=== PATIENT | male | born 1930 | race Caucasian/White ===

== ENCOUNTER 2017-12-26 10:06 | Inpatient (IN) | payer MEDICARE ==
[~2017-12-26] VITALS: Ht 180.3 cm; Wt 97.7 kg
[~2017-12-26 10:06] MED LIST: ALPR0.5T7 PO; AMLO5TAB7 PO; BUME1TAB4 PO; CLOP75TA28 PO; INSU100I23 SC; LEVO25TA5 PO; MECL-124 PO; METO-352 PO; METO-370; NITR0.4T39 SL; PANT40TA3 PO; POTA20PA34 PO; POTA20TA15 PO
[2017-12-26 11:38] VITALS: BP 131/75
[2017-12-26] MEDS ORDERED: ONDANSETRON 4 MG/2 ML (SDV) Z0FRAN IV PRN (11:45)
[2017-12-26] MEDS ORDERED: INSU100I23 SQ (11:56)
[2017-12-26] MEDS ORDERED: METO-370 PO (11:56)
[2017-12-26] MEDS: NS IV 1000 ML 1,000 ML IV SCH (12:01)
[2017-12-26] MEDS: morphine INJ 4 MG/ML 1 ML (VIAL/SYRINGE) IV PRN ×2 (12:01→14:48)
[2017-12-26] MEDS ORDERED: ALPRAZolam 0.5 MG (XANAX) TAB PO PRN (12:30)
[2017-12-26] MEDS ORDERED: NITROGLYCERIN 0.4 MG SL TABS BTL 25'S SL PRN (12:30)
[2017-12-26 12:56] LABS: HEMOGLOBIN 13.2 G/DL (13.3-17.7); RED BLOOD COUNT 3.97 10^6/uL (4.35-5.85); RED CELL DISTRIBUTION WIDTH 12.7 % (10.0-14.5); WHITE BLOOD COUNT 7.6 10^3/uL (4.3-11.0)
[2017-12-26 13:16] LABS: CALCIUM 8.9 MG/DL (8.5-10.1); CREATININE SERUM 2.39 MG/DL (0.60-1.30); POTASSIUM 4.2 MMOL/L (3.6-5.0)
[2017-12-26] MEDS ORDERED: MECLIZINE 25 MG (ANTIVERT) TAB PO PRN (14:45)
[2017-12-26] MEDS ORDERED: ceFAZolin 2 GM IV Premixed 50 ML IV NR (15:15)
[2017-12-26 16:35] VITALS: BP 128/60
[2017-12-26] MEDS: ENOXAPARIN 30 MG/0.3 ML (LOVENOX) SYR SC SCH (16:46)
[2017-12-26] MEDS: inSUlin ASPART (NovoLOG) 1 UNIT/0.01 ML (CHARGE PER UNIT) SC SCH (16:47)
[2017-12-26 17:58] LABS: BILIRUBIN,URINE NEGATIVE (NEGATIVE); CLARITY,URINE SLIGHTLY CLOUDY; COLOR,URINE AMBER; GLUCOSE, URINE (UA) NEGATIVE (NEGATIVE); KETONES,URINE NEGATIVE (NEGATIVE); LEUKOCYTE ESTERASE ,URINE 2+ (NEGATIVE); NITRITE,URINE NEGATIVE (NEGATIVE); PH,URINE 6.5 (5-9); PROTEIN,URINE 2+ (NEGATIVE); UROBILINOGEN,URINE 1 MG/DL (NORMAL)
[2017-12-26 18:06] LABS: BACTERIA,URINE NEGATIVE /HPF; RBC,URINE >100 /HPF; WBC,URINE RARE /HPF
--- NOTE | 2017-12-26 19:36 | History & Physicial ---
History of Present Illness History of Present Illness Reason for visit/HPI PT IS AN 87 Y/O MALE WHO IS KNOWN TO ME FROM CLINIC AND PREVIOUS HOSPITALIZATIONS. THE PATIENT REPORTS THAT HE WOKE UP THIS MORNING AROUND 7, GOT UP TO GO TO THE RESTROOM AND FELT UNSTEADY - HE GRABBED FOR THE VANITY, BUT WENT DOWN TO THE GROUND HITTING HIS RIGHT SHOULDER ON THE TOILET AND HIS RIGHT HIP ON THE FLOOR. HE WAS ABLE TO ROUSE HIS FROM BED AND HE WAS TAKEN TO [facility] WHERE HE WAS FOUND TO HAVE A RIGHT HIP FRACTURE. THEY DID NOT HAVE ORTHOPEDIC COVERAGE AVAILABLE TODAY. HE REPORTS THAT HIS SHOULDER DOES NOT HURT, BUT HIS RIGHT HIP CONTINUES TO BE UNCOMFORTABLE. Date of Admission Dec 26, 2017 at 11:10 Date Seen by Provider: Dec 26, 2017 Time Seen by Provider: 19:00 I consulted on this patient on 12/26/17 1900 Attending Physician Franco Gilmore MD Admitting Physician Franco Gilmore MD Consult DR. ZHANG Allergies and Home Medications Allergies Coded Allergies: fenofibrate (Verified Allergy, Unknown, 10/18/17) metoclopramide (Verified Allergy, Unknown, 10/18/17) rosiglitazone (Verified Allergy, Unknown, 10/18/17) Home Medications Alprazolam 0.5 Mg Tablet, 0.5 MG PO BID PRN for ANXIETY, (Reported) Amlodipine Besylate 5 Mg Tablet, 5 MG PO DAILY, (Reported) Bumetanide 1 Mg Tablet, 1 MG PO DAILY, (Reported) Clopidogrel Bisulfate 75 Mg Tablet, 75 MG PO DAILY, (Reported) Insulin Lispro 100 Unit/1 Ml Insuln.pen, 30 UNIT SQ BID, (Reported) Levothyroxine Sodium 25 Mcg Tablet, 25 MCG PO DAILY, (Reported) Meclizine HCl 25 Mg Tab.chew, 25 MG PO TID PRN for DIZZINESS, (Reported) Metoprolol Succinate 50 Mg Tab.er.24h, 50 MG PO HS, (Reported) Nitroglycerin 0.4 Mg Tab.subl, 0.4 MG SL UD PRN for CHEST PAIN, (Reported) Pantoprazole Sodium 40 Mg Tablet.dr, 40 MG PO DAILY, (Reported) Potassium Chloride 20 Meq Tab.er.prt, 20 MEQ PO HS, (Reported) Patient Home Medication List Home Medication List Reviewed: Yes Past Halmcuh-Nulnhj-Wuptpo Hx Patient Social History Deztal Status: Living Status: LIVES AT HOME WITH HIS AND DTR AND HER Employed/Student: retired Alcohol Use: Denies Use Recreational Drug Use: No Smoking Status: Never a Smoker Physical Abuse Screen: No Sexual Abuse: No Recent Foreign Travel: No Contact w/other who traveled: No Recent Hopitalizations: No Recent Infectious Disease Expo: No Immunizations Up To Date Tetanus Booster (TDap): Unknown Pediatric: Yes Date of Pneumonia Vaccine: Feb 26, 2017 Seasonal Allergies Seasonal Allergies: No Surgeries Yes (stents, aortic valve replacement) CABG Respiratory Yes Currently Using CPAP: No Currently Using BIPAP: No Cardiovascular Yes Hypertension Neurological Yes Stroke Reproductive System Sexually Transmitted Disease: No HIV/AIDS: No Genitourinary No Gastrointestinal Yes Gastroesophageal Reflux Musculoskeletal Yes Arthritis Endocrine History of Endocrine Disorders: Yes Endocrine Disorders: Diabetes, Insulin dep, Hypothyroidsim HEENT History of HEENT Disorders: No Loss of Vision: Denies Hearing Impairment: Denies Cancer No Psychosocial History of Psychiatric Problem: Yes Behavioral Health Disorders: Depression Integumentary History of Skin or Integumenta: No Blood Transfusions History of Blood Disorders: No Adverse Reaction to a Blood Tr: No Reviewed Nursing Assessment Reviewed/Agree w Nursing PMH: Yes Family Medical History Significant Family History: Heart Disease, Hypertension Family Hx: Cardiovascular disease Hypertension Myocardial infarction Review of Systems Constitutional: No chills, No fever, No malaise, No weakness EENTM: No blurred vision, No throat swelling Respiratory: No cough, No dyspnea on exertion Cardiovascular: No chest pain, No edema, No palpitations Gastrointestinal: No abdominal pain, No constipation, No diarrhea Genitourinary: no symptoms reported Musculoskeletal: joint pain (RIGHT HIP PAIN), muscle weakness Skin: no symptoms reported Psychiatric/Neurological: Denies Anxiety, Denies Depressed; Weakness All Other Systems Reviewed Negative Unless Noted: Yes Physical Exam Vital Signs Vital Signs - First Documented 12/26/17 11:38 Temp 96.2 Pulse 62 Resp 20 B/P (MAP) 131/75 (93) Pulse Ox 97 O2 Delivery Nasal Cannula O2 Flow Rate 4.00 Capillary Refill : Height, Weight, BMI Height: 5'11.00" Weight: 218lbs. 9.6oz. 99.604676ds; 30.5 BMI Method:Stated General Appearance: No Apparent Distress, WD/WN Eyes: Bilateral Eye Normal Inspection, Bilateral Eye PERRL, Bilateral Eye EOMI HEENT: PERRL/EOMI, Pharynx Normal Neck: Full Range of Motion, Non Tender, Supple Respiratory: Chest Non Tender, Lungs Clear, Normal Breath Sounds, No Accessory Muscle Use, No Respiratory Distress Cardiovascular: Regular Rate, Rhythm, No Edema, No Murmur Gastrointestinal: Normal Bowel Sounds, Non Tender, Soft Rectal: Deferred Extremity: Normal Capillary Refill, No Pedal Edema, Other (TTP OVER RIGHT ANTERIOR HIP) Neurologic/Psychiatric: Alert, Oriented x3, No Motor/Sensory Deficits, Normal Mood/Affect, lead electrical controls engineer II-XII Norm as Tested Skin: Normal Color, Warm/Dry Lymphatic: No Adenopathy Assessment/Plan Assessment and Plan RIGHT INTERTROCHANTERIC HIP FRACTURE HYPERTENSION DIABETES MELLITUS HYPOTHYROID GERD RIGHT INTERTROCHANTERIC HIP FRACTURE - DR. ZHANG TO PERFORM SURGERY TOMORROW MORNING. HYPERTENSION - RESUME HOME MEDICATIONS - MONITOR BLOOD PRESSURES. DIABETES MELLITUS - RESUME INSULIN. HYPOTHYROID - RESUME LEVOTHYROXINE. GERD - RESUME PROTONIX. HOLD ANTICOAGULATION UNTIL ONE DAY POST OP - RX FOR FOOT PUMPS. Admission Diagnosis RIGHT INTERTROCHANTERIC HIP FRACTURE HYPERTENSION DIABETES MELLITUS HYPOTHYROID Admission Status: Inpatient Order (span 2 midnights) Reason for Inpatient Admission: PT HAS RIGHT HIP FRACTURE - WILL REQUIRE MORE THAN TWO MIDNIGHTS FOR STABILIZATION AND MANAGEMENT OF HIS SYMPTOMS. Clinical Quality Measures DVT/VTE Risk/Contraindication: Risk Factor Score Per Nursin RFS Level Per Nursing on Admit: 4+=Very High FRANCO GILMORE MD Dec 26, 2017 19:36
[2017-12-26 20:30] VITALS: BP 110/56
[2017-12-26] MEDS: meTOproloL SUCCINATE 50 MG (TOPROL XL) TAB PO SCH (21:32)
[2017-12-26] MEDS: KCL 20 MEQ TAB (K-DUR) PO SCH (21:33)
[2017-12-27 00:15] VITALS: BP 117/58
[2017-12-27] MEDS: NS IV 1000 ML 1,000 ML IV SCH ×2 (01:29→15:00)
[2017-12-27 04:44] VITALS: BP 127/60
[2017-12-27 05:55] LABS: HEMOGLOBIN 11.4 G/DL (13.3-17.7); MEAN PLATELET VOLUME 9.5 FL (7.4-10.4); RED BLOOD COUNT 3.52 10^6/uL (4.35-5.85); RED CELL DISTRIBUTION WIDTH 12.9 % (10.0-14.5); WHITE BLOOD COUNT 5.3 10^3/uL (4.3-11.0)
[2017-12-27] MEDS: LEVOTHYROXINE 25 MCG (LEVOTHROID) TAB PO SCH (06:08)
[2017-12-27] MEDS: PANTOPRAZOLE 40 MG (PROTONIX) TAB PO SCH (06:08)
[2017-12-27 06:16] LABS: ALBUMIN 3.1 GM/DL (3.2-4.5); BILIRUBIN,TOTAL 1.5 MG/DL (0.1-1.0); CALCIUM 8.2 MG/DL (8.5-10.1); CREATININE SERUM 2.26 MG/DL (0.60-1.30); POTASSIUM 4.2 MMOL/L (3.6-5.0); TOTAL PROTEIN 5.9 GM/DL (6.4-8.2)
[2017-12-27] MEDS: inSUlin ASPART (NovoLOG) 1 UNIT/0.01 ML (CHARGE PER UNIT) SC SCH ×2 (07:16→17:53)
[2017-12-27 08:00] VITALS: BP 133/62
[2017-12-27] MEDS ORDERED: fentaNYL INJECTION 100 MCG/2 ML AMP ONE ×2 (09:00→10:26)
[2017-12-27] MEDS ORDERED: NEO/POLY/BAC (NEOSPORIN) OINT 15 GM TUBE ONE (09:15)
[2017-12-27] MEDS ORDERED: GENTAMICIN 40 MG/ML 2 ML INJ SDV ONE (09:15)
[2017-12-27] MEDS ORDERED: proPOfol 200 MG/20 ML (DIPRIVAN) VIAL IV ONE (09:24)
[2017-12-27] MEDS ORDERED: ROCURONIUM 10 MG/ML 5 ML SYRINGE IV ONE (09:24)
[2017-12-27] MEDS ORDERED: LIDOCAINE PF 2% 5 ML (XYLOCAINE) VIAL ONE (09:24)
[2017-12-27] MEDS ORDERED: ONDANSETRON 4 MG/2 ML (SDV) Z0FRAN ONE (09:24)
[2017-12-27] MEDS: LACTATED RINGERS 1,000 ML IV PRN ×2 (09:25→10:55)
[2017-12-27] MEDS ORDERED: SEVOFLURANE (ULTANE) 15 ML INHAL SOLN ONE ×7 (09:28→11:33)
--- NOTE | 2017-12-27 09:30 | Progress Note-Pre Operative ---
Pre-Operative Progress Note H&P Reviewed The H&P was reviewed, patient examined and no changes noted. Date Seen by Provider: Dec 27, 2017 Time Seen by Provider: 09:20 Date H&P Reviewed: Dec 27, 2017 Time H&P Reviewed: 09:20 Pre-Operative Diagnosis: Displaced right femoral neck fracture BJ ZHANG DO Dec 27, 2017 9:30 am
[2017-12-27] MEDS ORDERED: diphenhydrAMINE 50 MG/ML INJ (BENADRYL) IV PRN (09:45)
[2017-12-27] MEDS ORDERED: ceFAZolin 2 GM IV Premixed 50 ML IV SCH (09:45)
--- NOTE | 2017-12-27 10:27 | Progress Note ---
Subjective Date Seen by Provider: Dec 27, 2017 Time Seen by Provider: 09:00 Subjective/Events-last exam PT IS AN 87 Y/O MALE WHO FELL AT HOME AND SUSTAINED A RIGHT INTERTROCHANTERIC HIP FRACTURE. CULLEN REPORTS THAT HE HAD QUITE A BIT OF PAIN THROUGHOUT THE NIGHT LAST NIGHT. HE IS TEARFUL THIS MORNING AFRAID OF HAVING SURGERY. Review of Systems General: Fatigue HEENT: No Head Aches Pulmonary: No Dyspnea, No Cough Cardiovascular: No: Chest Pain, Palpitations Gastrointestinal: No: Nausea, Abdominal Pain Genitourinary: Other (RODRIGUES IN PLACE) Neurological: Weakness, Other (TEARFUL) Objective Exam Last Set of Vital Signs Vital Signs Date Time Temp Pulse Resp B/P (MAP) Pulse Ox O2 Delivery O2 Flow Rate FiO2 12/27/17 08:00 98.2 60 18 133/62 (85) 98 4.00 12/27/17 04:44 Nasal Cannula Capillary Refill : I&O Intake and Output 12/27/17 00:00 Intake Total 950 ml Output Total 700 ml Balance 250 ml Intake Oral 750 ml IV Total 200 ml Output Urine Total 700 ml Daily Weight Change No General: Alert, Oriented X3, Cooperative HEENT: Atraumatic, PERRLA Neck: Supple Lungs: Clear to Auscultation Heart: Regular Rate Abdomen: Normal Bowel Sounds, Soft, No Tenderness Skin: Other (ABRASION RIGHT POSTERIOR SHOULDER/SCAPULA) Psych/Mental Status: Mental Status NL, Other (TEARFUL) Results Lab Laboratory Tests 12/26/17 12:45: White Blood Count 7.6, Red Blood Count 3.97L, Hemoglobin 13.2L, Hematocrit 38L, Mean Corpuscular Volume 96, Mean Corpuscular Hemoglobin 33, Mean Corpuscular Hemoglobin Concent 35, Red Cell Distribution Width 12.7, Platelet Count 132, Mean Platelet Volume 10.0, Sodium Level 140, Potassium Level 4.2, Chloride Level 105, Carbon Dioxide Level 22, Anion Gap 13, Blood Urea Nitrogen 30H, Creatinine 2.39H, Estimat Glomerular Filtration Rate 26, BUN/Creatinine Ratio 13 , Glucose Level 176H, Calcium Level 8.9 12/26/17 16:39: Glucometer 172H 12/26/17 16:50: Urine Color AMBERH, Urine Clarity SLIGHTLY CLOUDY, Urine pH 6.5, Urine Specific Benge 1.015L, Urine Protein 2+H, Urine Glucose (UA) NEGATIVE, Urine Ketones NEGATIVE, Urine Nitrite NEGATIVE, Urine Bilirubin NEGATIVE, Urine Urobilinogen 1 , Urine Leukocyte Esterase 2+H, Urine RBC (Auto) 5+H, Urine RBC >100H, Urine WBC RARE, Urine Crystals NONE, Urine Bacteria NEGATIVE, Urine Casts NONE, Urine Mucus NEGATIVE, Urine Culture Indicated NO 12/26/17 21:06: Glucometer 83 12/27/17 05:31: White Blood Count 5.3, Red Blood Count 3.52L, Hemoglobin 11.4L, Hematocrit 35L, Mean Corpuscular Volume 98, Mean Corpuscular Hemoglobin 32, Mean Corpuscular Hemoglobin Concent 33, Red Cell Distribution Width 12.9, Platelet Count 122L, Mean Platelet Volume 9.5 12/27/17 05:44: Sodium Level 136, Potassium Level 4.2, Chloride Level 104, Carbon Dioxide Level 24, Anion Gap 8, Blood Urea Nitrogen 27H, Creatinine 2.26H, Estimat Glomerular Filtration Rate 27, BUN/Creatinine Ratio 12, Glucose Level 146H, Calcium Level 8.2L, Corrected Calcium 8.9, Total Bilirubin 1.5H, Aspartate Amino Transf (AST/ SGOT) 20, Alanine Aminotransferase (ALT/SGPT) 8, Alkaline Phosphatase 70, Total Protein 5.9L, Albumin 3.1L 12/27/17 05:50: Glucometer 163H Assessment/Plan Assessment/Plan Assess & Plan/Chief Complaint RIGHT INTERTROCHANTERIC HIP FRACTURE HYPERTENSION DIABETES MELLITUS HYPOTHYROID GERD RIGHT INTERTROCHANTERIC HIP FRACTURE - DR. ZHANG TO PERFORM SURGERY THIS MORNING. HYPERTENSION - RESUMED HOME MEDICATIONS - MONITOR BLOOD PRESSURES. DIABETES MELLITUS - RESUMED INSULIN. HYPOTHYROID - RESUMED LEVOTHYROXINE. GERD - RESUMED PROTONIX. HOLD ANTICOAGULATION UNTIL ONE DAY POST OP - RX FOR FOOT PUMPS. MONITOR CBC POST-OPERATIVELY - MONITOR FSBS POST-OPERATIVELY Clinical Quality Measures Admission Status Admission Dx RIGHT INTERTROCHANTERIC HIP FRACTURE HYPERTENSION DIABETES MELLITUS HYPOTHYROID DVT/VTE Risk/Contraindication: Risk Factor Score Per Nursin RFS Level Per Nursing on Admit: 4+=Very High FRANCO DENIS MD Dec 27, 2017 10:27
[2017-12-27] MEDS ORDERED: GLYCOPYRROLATE 0.2 MG/ML (ROBINUL) 2 ML VIAL ONE (11:01)
[2017-12-27] MEDS ORDERED: NEOSTIGMINE 1 MG/ML 5 ML SYRINGE ONE (11:01)
--- NOTE | 2017-12-27 11:17 | Progress Note-Post Operative ---
Post-Operative Progess Note Surgeon (s)/Concrete Mixer (s) Surgeon BJ ZHANG DO Concrete Mixer: Zheng Serrano BUSINESS PROFESSORGarret Pre-Operative Diagnosis Displaced right femoral neck fracture Post-Operative Diagnosis same Procedure & Operative Findings Date of Procedure 12/27/17 Procedure Performed/Findings Bipolar femoral hemiarthroplasty right hip Anesthesia Type General Estimated Blood Loss Estimated blood loss (mL): 600 ml Specimens/Packing Specimens Removed right femoral head BJ ZHANG DO Dec 27, 2017 11:16 am
[2017-12-27] MEDS ORDERED: ONDANSETRON 4 MG/2 ML (SDV) Z0FRAN IVP PRN (11:45)
[2017-12-27] MEDS ORDERED: HYDROmorphone 2 MG/ML VIAL (DILAUDID) IV ONE (11:45)
[2017-12-27] MEDS: morphine INJ 10 MG/ML 1ML (SYR OR VIAL) IVP ONE (11:53)
--- NOTE | 2017-12-27 12:23 | Diagnostic Imaging Report ---
INDICATION: Post total hip for fracture. TECHNIQUE: AP pelvis 11:52 AM CORRELATION STUDY: 12/26/2017 FINDINGS: Since prior study, unipolar right hip arthroplasty has been performed. Hardware appears to be intact and anatomic alignment on single projection imaging. Remainder of the pelvis demonstrates no interval acute abnormality. Left hip joint stable. Vascular calcification present. Transitional anatomy at the lower lumbar spine. IMPRESSION: Negative examination of the pelvis. Dictated by: Dictated on workstation # [id number]
[2017-12-27] MEDS: BUMETANIDE 1 MG (BUMEX) TAB PO SCH (15:00)
[2017-12-27] MEDS: ENOXAPARIN 30 MG/0.3 ML (LOVENOX) SYR SC SCH (15:00)
[2017-12-27] MEDS: amLODIPine 5 MG (NORVASC) TAB PO SCH (15:00)
[2017-12-27 16:00] VITALS: BP 123/63
--- NOTE | 2017-12-27 17:21 | OPERATIVE REPORT ---
DATE OF SERVICE: PREOPERATIVE DIAGNOSIS: Displaced femoral neck fracture of right hip. POSTOPERATIVE DIAGNOSIS: Displaced femoral neck fracture of right hip. PROCEDURE: Bipolar femoral hemiarthroplasty, right hip. SURGEON: Bj Zhang DO LOG HOOKER: LISA Vuong. SURGICAL CONTOUR PATH TAPE MILL OPERATOR DUTIES: Zheng Serrano, instructor adjunct surgical technician, was utilized throughout the entire procedure for patient positioning, soft tissue retraction, placement of metallic implants, wound closure, dressing, application and the patient transfer. ANESTHESIA: General. ESTIMATED BLOOD LOSS: 600 mL. COMPLICATIONS: None. INDICATIONS AND FINDINGS: The patient is an 87-year-old male, who slipped and fell at home while attempting to transfer from a bathroom. He noted immediate right hip pain. X-rays were obtained. A displaced femoral neck fracture was noted on the right. DESCRIPTION OF PROCEDURE: The patient was taken to surgery where a bipolar femoral hemiarthroplasty was performed without complication utilizing the DePuy system with a size 7 standard press fit Tri-Lock femoral stem with a 53 mm outside diameter self-centering bipolar head with a +1.5 femoral neck. PROCEDURE IN DETAIL: The patient was taken to the operating room and placed supine upon the operating table and a general inhalation anesthetic was administered. The patient was then placed in the left lateral decubitus position, secured to the operating table with a pegboard. A ChloraPrep and sterile drape of the right hip and the right lower extremity was performed. A lateral longitudinal incision was then made over the right hip centered over the greater trochanter and incision was deepened through the iliotibial band. The patient had hypertrophic musculature at the iliotibial band proximally. This was retracted. The greater trochanter was identified. Electrocautery was used to create a Hardinge approach to the hip, dividing the vastus lateralis fascia and muscle dividing the tendon attachment of the gluteus medius tendon up into the muscle itself. The capsule was reflected off the femoral neck and hematoma was identified. The hip was externally rotated and flexed. An osteotomy was completed through the femoral neck. A corkscrew was used to harvest the femoral head, which measured 53 mm in diameter. A box chisel was used to open the proximal femur. The proximal femur was broached up to a 7 mm broach. The calcar was smooth. Provisional components were inserted. The hip was taken through a range of motion with a +1.5 femoral neck and the hip was noted to be stable. The broach was removed. The wound was irrigated extensively with normal saline solution. The femoral stem was then impacted into position. Bone graft from the femoral head was then placed about the proximal aspect of the stem as well. The bipolar components were assembled. These were cold welded on the stem. The hip was reduced, taken through range of motion and found to be stable. Utilizing #1 Ethibond suture, the vastus lateralis fascia as well as the gluteus medius tendon were closed with multiple interrupted [id number] sutures reinforced with a running suture. The iliotibial band was closed with a running suture of #1 Vicryl. The subcutaneous tissues were closed in layers with 0 and 2-0 Vicryl suture. The skin was closed with stainless steel degn and Adaptic Neosporin bulky dressing was placed about the right hip. The patient was awakened and transported to postoperative recovery with anesthesia personnel present in satisfactory condition. Job ID: [id number] DocumentID: [id number] Dictated Date: 12/27/2017 11:55:24 Pre Wave Assembler Date: 12/27/2017 17:21:19 Dictated By: BJ ZHANG DO
[2017-12-27] MEDS: ceFAZolin 2 GM IV Premixed 50 ML IV SCH (18:06)
[2017-12-27 20:00] VITALS: BP 130/70
[2017-12-27] MEDS: meTOproloL SUCCINATE 50 MG (TOPROL XL) TAB PO SCH (20:54)
[2017-12-27] MEDS: KCL 20 MEQ TAB (K-DUR) PO SCH (20:55)
[2017-12-27] MEDS: morphine INJ 4 MG/ML 1 ML (VIAL/SYRINGE) IV PRN (22:31)
[2017-12-27 23:51] VITALS: BP 136/61
[2017-12-28] MEDS: ceFAZolin 2 GM IV Premixed 50 ML IV SCH (01:38)
[2017-12-28] MEDS: morphine INJ 4 MG/ML 1 ML (VIAL/SYRINGE) IV PRN ×4 (03:57→10:30)
[2017-12-28] MEDS: NS IV 1000 ML 1,000 ML IV SCH ×2 (04:00→17:27)
[2017-12-28 04:17] VITALS: BP 133/60
[2017-12-28 06:04] LABS: HEMOGLOBIN 11.3 G/DL (13.3-17.7); MEAN PLATELET VOLUME 9.8 FL (7.4-10.4); RED BLOOD COUNT 3.37 10^6/uL (4.35-5.85); RED CELL DISTRIBUTION WIDTH 12.2 % (10.0-14.5); WHITE BLOOD COUNT 6.4 10^3/uL (4.3-11.0)
[2017-12-28] MEDS: LEVOTHYROXINE 25 MCG (LEVOTHROID) TAB PO SCH (06:06)
[2017-12-28] MEDS: PANTOPRAZOLE 40 MG (PROTONIX) TAB PO SCH (06:06)
[2017-12-28 06:25] LABS: CALCIUM 8.1 MG/DL (8.5-10.1); CREATININE SERUM 2.23 MG/DL (0.60-1.30); POTASSIUM 3.9 MMOL/L (3.6-5.0)
[2017-12-28 08:00] VITALS: BP 126/56
--- NOTE | 2017-12-28 08:31 | Progress Note (SOAP) ---
Subjective Date Seen by Provider: Dec 28, 2017 Time Seen by Provider: 08:29 Subjective/Events-last exam Patient currently in bed awake and alert, complains of mild to moderate hip pain. Also complains of mild dyspnea Objective Exam Vital Signs Date Time Temp Pulse Resp B/P (MAP) Pulse Ox O2 Delivery O2 Flow Rate FiO2 12/28/17 07:39 93 Room Air 12/28/17 07:30 98 Nasal Cannula 2.00 12/28/17 04:17 99.1 83 22 133/60 (84) 98 4.00 12/28/17 02:31 98 Nasal Cannula 2.00 12/27/17 23:51 99.9 85 20 136/61 (86) 95 4.00 12/27/17 22:12 98 Nasal Cannula 3.00 12/27/17 20:00 98.9 73 20 130/70 (90) 98 4.00 12/27/17 18:52 97 Nasal Cannula 3.00 12/27/17 16:00 97.5 61 16 123/63 (83) 96 4.00 12/27/17 14:10 93 Nasal Cannula 3.00 12/27/17 12:00 99.5 I & O 12/28/17 06:59 Intake Total 3850 ml Output Total 2450 ml Balance 1400 ml Capillary Refill : General Appearance: No Apparent Distress Extremity: Normal Capillary Refill, Normal Inspection, No Calf Tenderness Neurologic/Psychiatric: Alert, Oriented x3, No Motor/Sensory Deficits, Normal Mood/Affect Skin: Normal Color, Warm/Dry (dressing right hip CDI) Results Lab Laboratory Tests 12/27/17 16:33: Glucometer 169H 12/27/17 21:23: Glucometer 161H 12/28/17 05:46: Glucometer 249H 12/28/17 05:50: White Blood Count 6.4, Red Blood Count 3.37L, Hemoglobin 11.3L, Hematocrit 33L, Mean Corpuscular Volume 97, Mean Corpuscular Hemoglobin 34, Mean Corpuscular Hemoglobin Concent 35, Red Cell Distribution Width 12.2, Platelet Count 115L, Mean Platelet Volume 9.8, Sodium Level 136, Potassium Level 3.9, Chloride Level 104, Carbon Dioxide Level 20L, Anion Gap 12, Blood Urea Nitrogen 25H, Creatinine 2.23H, Estimat Glomerular Filtration Rate 28, BUN/Creatinine Ratio 11 , Glucose Level 226H, Calcium Level 8.1L Microbiology 12/26/17 MRSA Screen - Final, Complete Assessment/Plan Assessment/Plan Assess & Plan/Chief Complaint A: s/p right hip prosthesis, displaced right femoral neck fracture P: Continue current treatment, hospitalist to manage renal disease and other comorbidities, plan to transfer care to hospitalist tomorrow. Clinical Quality Measures DVT/VTE Risk/Contraindication: Risk Factor Score Per Nursin RFS Level Per Nursing on Admit: 4+=Very High BECKY PATEL APRN Dec 28, 2017 8:31 am
[2017-12-28] MEDS: BUMETANIDE 1 MG (BUMEX) TAB PO SCH (08:43)
[2017-12-28] MEDS: amLODIPine 5 MG (NORVASC) TAB PO SCH (08:44)
--- NOTE | 2017-12-28 09:59 | Anesthesia-General Post-Op ---
General Patient Condition Mental Status/LOC: Same as Preop Cardiovascular: Satisfactory Nausea/Vomiting: Absent Respiratory: Satisfactory Pain: Controlled Complications: Absent Post Op Complications Complications None Follow Up Care/Instructions Patient Instructions None needed. Anesthesia/Patient Condition Patient Condition Patient is doing well, no complaints, stable vital signs, no apparent adverse anesthesia problems. No complications reported per nursing. BERTO WAKEFIELD CRNA Dec 28, 2017 09:59
[2017-12-28] MEDS: inSUlin ASPART (NovoLOG) 1 UNIT/0.01 ML (CHARGE PER UNIT) SC SCH ×2 (10:06→17:18)
--- NOTE | 2017-12-28 10:09 | Progress Note-Hospitalist ---
Subjective HPI/CC On Admission Date Seen by Provider: Dec 28, 2017 Time Seen by Provider: 10:00 Subjective/Events-last exam Patient in a lot of pain 6 family members in the room PT attempting to work with the patient but pain is limiting progress Pt very declined overall and does not use the IS due to the pain Will add Percocet to the Morphine IV to attain better pain control but overall his prognosis is guarded due to advanced age and his slow progress Fever isolated this afternoon so Tylenol was given Review of Systems General: Malaise Musculoskeletal: leg pain Objective Exam Vital Signs Vital Signs Date Time Temp Pulse Resp B/P (MAP) Pulse Ox O2 Delivery O2 Flow Rate FiO2 12/28/17 13:05 100.5 12/28/17 12:03 83 22 120/57 (78) 94 Nasal Cannula 2.00 Capillary Refill : General Appearance: WD/WN, Chronically ill, Moderate Distress (due to pain) Respiratory: Lungs Clear, Normal Breath Sounds, Decreased Breath Sounds (in bases) Cardiovascular: Regular Rate, Rhythm, No Edema Neurologic/Psychiatric: Alert, Depressed Affect Results/Procedures Lab Laboratory Tests 12/28/17 05:50 Patient resulted labs reviewed. Assessment/Plan Assessment and Plan Assess & Plan/Chief Complaint s/p hip fracture Advanced age Isolated fever Slow recovery DM Thrombocytopenia CRI Plan: Pain med addition PT/OT Slow recovery Check labs in am IS if possible Diagnosis/Problems Diagnosis/Problems (1) Intertrochanteric fracture of right femur Status: Acute Qualifiers: Encounter type: initial encounter Fracture type: closed Fracture alignment: nondisplaced Qualified Codes: S72.144A - Nondisplaced intertrochanteric fracture of right femur, initial encounter for closed fracture (2) Chronic renal insufficiency, stage III (moderate) Status: Chronic (3) Diabetes mellitus Status: Chronic Qualifiers: Diabetes mellitus type: type 2 Diabetes mellitus surgical pathologist insulin use: with surgical pathologist use Diabetes mellitus complication status: with unspecified complications Qualified Codes: E11.8 - Type 2 diabetes mellitus with unspecified complications; Z79.4 - legal technician (current) use of insulin (4) Advanced age Status: Chronic (5) Fever Status: Acute Qualifiers: Fever type: unspecified Qualified Codes: R50.9 - Fever, unspecified (6) Poor prognosis Status: Acute Clinical Quality Measures DVT/VTE Risk/Contraindication: Risk Factor Score Per Nursin RFS Level Per Nursing on Admit: 4+=Very High ASH RUTH DO Dec 28, 2017 10:09
[2017-12-28] MEDS: DOCUSATE SODIUM 100 MG (COLACE) CAP PO SCH ×2 (10:29→20:14)
[2017-12-28] MEDS: POLYETHYLENE GLYCOL 17 GM (MIRALAX) PACK PO SCH ×2 (10:30→20:14)
[2017-12-28] MEDS: oxyCODONE/APAP 5/325MG (PERCOCET 5) TABLET PO PRN ×2 (10:30→15:09)
--- NOTE | 2017-12-28 11:35 | Physical Therapy Evaluation ---
PT Evaluation-General Medical Diagnosis Admission Date Dec 26, 2017 at 11:10 Medical Diagnosis: (R) hip fx, (R) hip hemiarthroplasty Onset Date: Dec 26, 2017 Therapy Diagnosis Therapy Diagnosis: Limited mobility Height/Weight Height (Feet): 5 Height (Inches): 11.00 Weight (Pounds): 218 Weight (Ounces): 9.6 Precautions Precautions/Isolations: Fall Prevention, Standard Precautions Weight Bear Status Right Lower Extremity: Right Full Weight Bearing Left Lower Extremity: Left Full Weight Bearing Referral Physician: La Gilmore MD Reason for Referral: Evaluation/Treatment Referral Comments Surgery by Dr. Alvarado Medical History Pertinent Medical History: DM, GERD, HTN, Hypothroidism Current History Pt fell at home resulting in (R) hip fx. Underwent surgery on 12/27/17 for (R) hip hemiarthroplasty. Reviewed History: Yes Social History Home: Single Level Current Living Status: Significant Other Entry Into Home: Stairs With Railing PT Steps Into Home: 4 Prior/Core FIM Prior Level of Function Functional [place] Measure 0=Not Assessed/NA 4=Minimal Assistance 1=Total Assistance 5=Supervision or Setup 2=Maximal Assistance 6=Modified [place] 3=Moderate Assistance 7=Complete [place] Bed Mobility: 7 Transfers (B,C,W/C) (FIM): 7 Gait: 7 Locomotion: 7 PT Evaluation-Current Subjective Pt is in intense pain, and Dr. Palacios is present and is ordering additional PO medication for pain. Pt had IV pain meds in the past 90min. Pain Numeric Pain Scale: 10-Worst Possible Pain Location: Right Location Body Site: Hip Pain Description: Stabbing Pt/Family Goals Transfer to [facility] Objective Patient Orientation: Confused Problem Solving: Poor Attachments: Oxygen, Basilio Catheter, IV ROM/Strength ROM Upper Extremities WFL ROM Lower Extremities Very limited tolerance to (R) hip ROM. Limited tolerance to (L) hip ROM. Strength Upper Extremities WFL Strength Lower Extremities 3-/5 (B) hip and knee Neuromuscular (Tone, Coordination, Reflexes) Intact Sensory Vision: Functional Hearing: Functional Sensation Right Upper Extremit: Intact Sensation Left Upper Extremity: Intact Sensation Right Lower Extremit: Intact Sensation Left Lower Extremity: Intact Transfers Functional [place] Measure 0=Not Assessed/NA 4=Minimal Assistance 1=Total Assistance 5=Supervision or Setup 2=Maximal Assistance 6=Modified [place] 3=Moderate Assistance 7=Complete [place] Transfers (B, C, W/C) (FIM): 1 Scootin Rollin Supine to/from Sit: 1 Pt is in too much pain to attempt standing. Able to sit edge of bed for 10 minutes with only occasional assist to correct posture. Gait Mode of Locomotion: Walk Anticipated Mode of Locomotion: Walk Balance Sitting Static: Good Sitting Dynamic: Fair Assessment/Needs Pt is severely limited by (R) hip pain. Rehab Potential: Fair PT Short Term Goals Short Term Goals Time Frame: Jan 04, 2018 Transfers (B,C,W/C) (FIM): 4 Gait (FIM): 3 Distance (FIM): 3=150 ft Gait Level of Assist: 4 Gait Assistive Device: FWW Stairs (FIM): 2 # of Steps: 4 Stairs Level of Assist: 2 PT Plan Problem List Problem List: Activity Tolerance, Functional Strength, Gait, Transfer, Bed Mobility, ROM Treatment/Plan Treatment Plan: Continue Plan of Care Treatment Plan: Bed Mobility, Functional Activity Alix, Gait, Therapeutic Exercise, Transfers Treatment Duration: Jan 04, 2018 Frequency: 11 times per week Estimated Hrs Per Day: .5 hour per day Patient and/or Family Agrees t: Yes Time/GCodes Time In: 0950 Time Out: 1023 Total Billed Treatment Time: 33 Total Billed Treatment 1, cathy 33 LORETO MORALES PT Dec 28, 2017 11:35
[2017-12-28 12:03] VITALS: BP 120/57
[2017-12-28] MEDS: ACETAMINOPHEN 325 MG TABLET PO PRN (12:11)
--- NOTE | 2017-12-28 12:34 | Occupational Therapy Eval ---
OT Evaluation-General/PLF Medical Diagnosis Admission Date Dec 26, 2017 at 11:10 Medical Diagnosis: (R) hip fx, (R) hip hemiarthroplasty Onset Date: Dec 26, 2017 Therapy Diagnosis Therapy Diagnosis: Weakness Height/Weight Height (Feet): 5 Height (Inches): 11.00 Weight (Pounds): 218 Weight (Ounces): 9.6 Precautions Precautions/Isolations: Fall Prevention, Standard Precautions Safety Interventions: Reorient-PRN Weight Bear Status Weight Bearing Restriction: Weight Bearing/Tolerated Referral Physician: La Gilmore MD Referral Reason: Activity Tolerance, Self Care, Evaluation/Treatment, Strengthening/ROM Medical History Pertinent Medical History: Arthritis, CABG, DM, GERD, HTN, Hypothroidism Additional Medical History Depression, IDDM, hypothyroidism Current History Pt. fell at home. Reviewed History: Yes Social History Home: Single Level Current Living Status: Significant Other Entry Into Home: Stairs With Railing Steps Into Home: 4 ADL-Prior Level of Function ADL PLOF Comments Pt. is unable to answer many questions due to pain. Pt. also seems [place]. OT Current Status Subjective Pt. does not report pain level, but does wince with pain. Nursing aware. Appearance Pt. is sitting on side of bed with PT support when OT comes into room. Mental Status/Objective Patient Orientation: Unable to Assess Current Glasses/Contacts: Yes Dentures/Partials: Yes ADL-Treatment Functional [place] Measure 0=Not Assessed/NA 4=Minimal Assistance 1=Total Assistance 5=Supervision or Setup 2=Maximal Assistance 6=Modified [place] 3=Moderate Assistance 7=Complete IndependenceIRFPAI Quality Coding Scale 6 Independent with activity with or without an assistive device 5 Patient requires set up or clean up by helper. Patient completes activity by themselves 4 Supervision or touching assist (CGA). [place] provide cues , steadying assist 3 The helper provides less than half the effort to complete the activity 2 The helper provides more than half the effort to complete the activity 1 Dependent. The helper does all the effort to complete an activity 7 Patient refused to complete or attempt activity 9 The patient did not perform the activity before the current illness or injury 88 Not attempted due to Medical conditions or safety concerns Lower Body Dressing (FIM): 1 Transfers (B, C, W/C) (FIM): 1 Pt. is sitting on side of bed. Demonstrates difficulty sitting upright without falling over. PT and OT assess pt. and prove co-treat. OT attempts to assess ADLs but pt. unable to participate. Keeps eyes closed partly throughout treatment. Unable to stand. Transfer back to bed but requires dependent assistance x 2. OT facilitated UE positioning while PT provided LE positioning. Provided abductor pillow and SCDs. All needs met and pt. positioned to comfort level. Education OT Patient Education: Correct positioning, Progress toward Goal/Update tx plan , Purpose of tx/functional activities, Reviewed precautions, Rehab process, Transfer techniques Teaching Recipient: Patient Teaching Methods: Demonstration, Discussion Response to Teaching: Verbalize Understanding OT Short Term Goals Short Term Goals Time Frame: Jan 11, 2018 Eating(FIM): 4 Grooming(FIM): 4 Upper Body Dressing(FIM): 4 Lower Body Dressing(FIM): 3 Toileting(FIM): 4 Transfers (B,C,W/C) (FIM): 4 Toilet/Commode Transfer(FIM): 4 Additional Short Term Goals: 1-Demonstrate ADL Tasks, 2-Verbalize Understanding , 3-ImproveStrength/Alix 1=Demonstrate adherence to instructed precautions during ADL tasks. 2=Patient will verbalize/demonstrate understanding of assistive devices/ modifications for ADL. 3=Patient will improve strength/tolerance for activity to enable patient to perform ADL's. OT Alf Goals Switchman Goals Time Frame: Jan 25, 2018 Eating (FIM): 5 Grooming(FIM): 5 Bathing(FIM): 4 Upper Body Dressing(FIM): 5 Lower Body Dressing(FIM): 4 Toileting(FIM): 5 Transfers (B,C,W/C) (FIM): 5 Toilet/Commode Transfer(FIM): 5 Additional Goals: 1-Demonstrate ADL Tasks, 2-Verbalize Understanding, 3- ImproveStrength/Alix 1=Demonstrate adherence to instructed precautions during ADL tasks. 2=Patient will verbalize/demonstrate understanding of assistive devices/ modifications for ADL. 3=Patient will improve strength/tolerance for activity to enable patient to perform ADL's. OT Education/Plan Problem List/Assessment Assessment: Decreased Activ Tolerance, Decreased UE Strength, Dependent Transfers, Impaired Bed Mobility, Impaired Cognition, Impaired Funct Balance, Impaired I ADL's, Impaired Self-Care Skills Discharge Recommendations Plan/Recommendations: Continue POC Therapy D/C Recommendations: 24 hr Supervision Comment Equipment needs and discharge location to be determined. Treatment Plan/Plan of Care Treatment,Training & Education: Yes Patient would benefit from OT for education, treatment and training to promote independence in ADL's, mobility, safety and/or upper extremity function for ADL' s. Plan of Care: ADL Retraining, Functional Mobility, UE Funct Exercise/Act Treatment Duration: Jan 25, 2018 Frequency: 5 times per week Estimated Hrs Per Day: .25 hour per day Agreement: Yes Rehab Potential: Guarded Time/GCodes Start Time: 10:20 Stop Time: 10:35 Total Time Billed (hr/min): 15 Billed Treatment Time 1, THONG DENIS OT Dec 28, 2017 12:34
[2017-12-28] MEDS: ENOXAPARIN 30 MG/0.3 ML (LOVENOX) SYR SC SCH (15:08)
[2017-12-28 15:40] VITALS: BP 111/56
[2017-12-28 19:35] VITALS: BP 103/51
[2017-12-28] MEDS: KCL 20 MEQ TAB (K-DUR) PO SCH (20:14)
[2017-12-28] MEDS: meTOproloL SUCCINATE 50 MG (TOPROL XL) TAB PO SCH (21:00)
[2017-12-29] VITALS: BP 115/58
[2017-12-29 04:00] VITALS: BP 112/56
[2017-12-29 06:28] LABS: HEMOGLOBIN 10.2 G/DL (13.3-17.7); RED BLOOD COUNT 3.08 10^6/uL (4.35-5.85); RED CELL DISTRIBUTION WIDTH 12.5 % (10.0-14.5); WHITE BLOOD COUNT 5.3 10^3/uL (4.3-11.0)
[2017-12-29] MEDS: NS IV 1000 ML 1,000 ML IV SCH ×3 (06:37→21:52)
[2017-12-29] MEDS: LEVOTHYROXINE 25 MCG (LEVOTHROID) TAB PO SCH (06:37)
[2017-12-29] MEDS: PANTOPRAZOLE 40 MG (PROTONIX) TAB PO SCH (06:37)
[2017-12-29 06:50] LABS: CALCIUM 7.7 MG/DL (8.5-10.1); CREATININE SERUM 1.96 MG/DL (0.60-1.30); POTASSIUM 4.4 MMOL/L (3.6-5.0)
[2017-12-29 08:53] VITALS: BP 124/57
[2017-12-29] MEDS: morphine INJ 4 MG/ML 1 ML (VIAL/SYRINGE) IV PRN ×3 (08:53→22:53)
--- NOTE | 2017-12-29 08:53 | Diagnostic Imaging Report ---
INDICATION: Mental status changes and swallowing difficulty. FINDINGS: The heart size is normal. The mediastinum is unremarkable. There is some minimal bibasilar subsegmental atelectasis and/or pneumonitis. There is no pleural effusion or pneumothorax. Pacemaker overlies the left hemithorax. IMPRESSION: Bibasilar subsegmental atelectasis and/or pneumonitis Dictated by: Dictated on workstation # [id number]
[2017-12-29] MEDS: amLODIPine 5 MG (NORVASC) TAB PO SCH (09:04)
--- NOTE | 2017-12-29 09:05 | Diagnostic Imaging Report ---
PROCEDURE: CT head without contrast. TECHNIQUE: Multiple contiguous axial images were obtained through the brain without the use of intravenous contrast. INDICATION: Mental status changes. Comparison is made with prior examination from 12/26/2017. FINDINGS: There is prominence of the ventricles and sulci. There is moderate chronic microvascular ischemic disease. There is focal decreased attenuation in the left parietal lobe and left occipital lobe compatible with subacute CVA. There is no intracranial mass, hemorrhage or extra-axial fluid collection. The calvarium is intact. Sinuses and mastoid air cells are clear. 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 Atrophy and moderate chronic microvascular ischemic disease No other acute intracranial abnormality. Dictated by: Dictated on workstation # [id number]
[2017-12-29] MEDS: DOCUSATE SODIUM 100 MG (COLACE) CAP PO SCH ×2 (09:08→20:07)
[2017-12-29] MEDS: inSUlin ASPART (NovoLOG) 1 UNIT/0.01 ML (CHARGE PER UNIT) SC SCH ×2 (09:08→16:35)
[2017-12-29] MEDS: POLYETHYLENE GLYCOL 17 GM (MIRALAX) PACK PO SCH ×2 (09:08→20:07)
[2017-12-29] MEDS: BUMETANIDE 1 MG (BUMEX) TAB PO SCH (09:08)
--- NOTE | 2017-12-29 10:38 | Physical Therapy Daily Note ---
PT Daily Note-Current Subjective Pt is alert, but disoriented. He reports intense pain in the (R) hip, and winces in pain with movement to either LE. IV pain medication administered at 0830. Pain Numeric Pain Scale: 7 Location: Right Location Body Site: Hip Pain Description: Stabbing Mental Status Patient Orientation: Person, Place Attachments: Oxygen, Basilio Catheter, IV Transfers Functional [place] Measure 0=Not Assessed/NA 4=Minimal Assistance 1=Total Assistance 5=Supervision or Setup 2=Maximal Assistance 6=Modified [place] 3=Moderate Assistance 7=Complete IndependenceIRFPAI Quality Coding Scale 6 Independent with activity with or without an assistive device 5 Patient requires set up or clean up by helper. Patient completes activity by themselves 4 Supervision or touching assist (CGA). [place] provide cues , steadying assist 3 The helper provides less than half the effort to complete the activity 2 The helper provides more than half the effort to complete the activity 1 Dependent. The helper does all the effort to complete an activity 7 Patient refused to complete or attempt activity 9 The patient did not perform the activity before the current illness or injury 88 Not attempted due to Medical conditions or safety concerns Transfers (B, C, W/C) (FIM): 1 Scootin Rollin Supine to/from Sit: 1 Sit to/from Stand: 1 Pt performed sit to stand 5x, with total assist required for each lift. He attempted to stand on each occasion, but was only able to remain standing for up to 5 seconds each bout. Weight Bearing Right Lower Extremity: Right Full Weight Bearing Left Lower Extremity: Left Full Weight Bearing Exercises Supine Ex: LE Protocol Supine Reps: 12 Assessment Current Status: Poor Progress, Fair Progress Pt continues to be very limited by pain in the (R) hip/pelvis. He was more willing and able to participate with therapy today. PT Short Term Goals Short Term Goals Time Frame: Jan 04, 2018 Transfers (B,C,W/C) (FIM): 4 Gait (FIM): 3 Distance (FIM): 3=150 ft Gait Level of Assist: 4 Gait Assistive Device: FWW Stairs (FIM): 2 # of Steps: 4 Stairs Level of Assist: 2 PT Plan Treatment/Plan Treatment Plan: Continue Plan of Care Treatment Plan: Bed Mobility, Functional Activity Alix, Gait, Therapeutic Exercise, Transfers Treatment Duration: Jan 04, 2018 Frequency: 11 times per week Estimated Hrs Per Day: .5 hour per day Patient and/or Family Agrees t: Yes Time/GCodes Time In: 954 Time Out: 1025 Total Billed Treatment Time: 30 Total Billed Treatment 1, ex 15, fa 15 LORETO MORALES PT Dec 29, 2017 10:38
[2017-12-29 12:15] VITALS: BP 109/69
--- NOTE | 2017-12-29 12:48 | Progress Note-Hospitalist ---
Subjective HPI/CC On Admission Date Seen by Provider: Dec 29, 2017 Time Seen by Provider: 10:45 Subjective/Events-last exam Meg the nurse is getting patient up and more active today Creatinine improved at 1.9 Chest x-ray reveals atelectasis bilaterally and she will work on incentive spirometer and I will add nebulizer treatments Family thinks he is doing better Obtained DO NOT RESUSCITATE order Patient reports no significant change in his pain Review of Systems Musculoskeletal: leg pain Objective Exam Vital Signs Vital Signs Date Time Temp Pulse Resp B/P (MAP) Pulse Ox O2 Delivery O2 Flow Rate FiO2 12/29/17 13:00 100.1 12/29/17 08:53 81 24 124/57 (79) 99 NIV Bilevel 12/29/17 07:40 2.00 Capillary Refill : General Appearance: No Apparent Distress, WD/WN, Chronically ill Respiratory: Lungs Clear, Normal Breath Sounds, Decreased Breath Sounds Cardiovascular: Regular Rate, Rhythm, No Edema Extremity: Pedal Edema Neurologic/Psychiatric: Alert, Oriented x3, No Motor/Sensory Deficits, Depressed Affect Results/Procedures Lab Laboratory Tests 12/29/17 06:05 Patient resulted labs reviewed. Assessment/Plan Assessment and Plan Assess & Plan/Chief Complaint s/p hip fracture Advanced age Isolated fever Slow recovery DM Thrombocytopenia CRI Plan: Pain meds PT/OT Slow recovery Check labs in am IS if possible Diagnosis/Problems Diagnosis/Problems (1) Intertrochanteric fracture of right femur Status: Acute Qualifiers: Encounter type: initial encounter Fracture type: closed Fracture alignment: nondisplaced Qualified Codes: S72.144A - Nondisplaced intertrochanteric fracture of right femur, initial encounter for closed fracture (2) Chronic renal insufficiency, stage III (moderate) Status: Chronic (3) Diabetes mellitus Status: Chronic Qualifiers: Diabetes mellitus type: type 2 Diabetes mellitus nursing home insulin use: with nursing home use Diabetes mellitus complication status: with unspecified complications Qualified Codes: E11.8 - Type 2 diabetes mellitus with unspecified complications; Z79.4 - [facility] (current) use of insulin (4) Advanced age Status: Chronic (5) Fever Status: Acute Assessment & Plan: ATX on CXR will order IS and OOB and Nebs to prevent pneumonia Qualifiers: Fever type: unspecified Qualified Codes: R50.9 - Fever, unspecified (6) Poor prognosis Status: Acute Clinical Quality Measures DVT/VTE Risk/Contraindication: Risk Factor Score Per Nursin RFS Level Per Nursing on Admit: 4+=Very High ASH RUTH DO Dec 29, 2017 12:48
[2017-12-29] MEDS: ACETAMINOPHEN 325 MG TABLET PO PRN (13:00)
[2017-12-29 16:02] VITALS: BP 113/56
[2017-12-29] MEDS: ENOXAPARIN 30 MG/0.3 ML (LOVENOX) SYR SC SCH (16:34)
[2017-12-29] MEDS: RT-ALBUTEROL SULF 2.5 MG/3 ML PRE-MIX VIAL INH SCH ×2 (17:02→19:36)
--- NOTE | 2017-12-29 19:28 | Progress Note (SOAP) ---
Subjective Date Seen by Provider: Dec 29, 2017 Time Seen by Provider: 19:26 Subjective/Events-last exam resting at this time, awakes easily but is slightly confused. Verbalizes no complaints. Objective Exam Vital Signs Date Time Temp Pulse Resp B/P (MAP) Pulse Ox O2 Delivery O2 Flow Rate FiO2 12/29/17 16:02 98.6 79 20 113/56 (75) 96 Nasal Cannula 1.50 12/29/17 13:00 100.1 12/29/17 12:15 100.1 87 22 109/69 (82) 99 Nasal Cannula 1.50 12/29/17 08:53 99.6 81 24 124/57 (79) 99 NIV Bilevel 12/29/17 07:40 Nasal Cannula 2.00 12/29/17 04:00 98.7 71 20 112/56 (74) 97 NIV Bilevel 12/29/17 00:00 98.5 73 20 115/58 (77) 95 NIV Bilevel 12/28/17 20:00 Nasal Cannula 1.50 12/28/17 19:35 98.6 74 22 103/51 (68) 95 Nasal Cannula 1.50 I & O 12/29/17 07:00 Intake Total 400 ml Output Total 1100 ml Balance -700 ml Capillary Refill : General Appearance: No Apparent Distress Extremity: Normal Capillary Refill Neurologic/Psychiatric: Alert, Oriented x3 Skin: Normal Color, Warm/Dry (dressing right hip spotty serousang drainage) Results Lab Laboratory Tests 12/28/17 20:56: Glucometer 87 12/28/17 23:29: Glucometer 123H 12/29/17 06:04: Glucometer 158H 12/29/17 06:05: White Blood Count 5.3, Red Blood Count 3.08L, Hemoglobin 10.2L, Hematocrit 30L, Mean Corpuscular Volume 99, Mean Corpuscular Hemoglobin 33, Mean Corpuscular Hemoglobin Concent 34, Red Cell Distribution Width 12.5, Platelet Count 108L, Mean Platelet Volume 10.0, Sodium Level 136, Potassium Level 4.4, Chloride Level 106, Carbon Dioxide Level 20L, Anion Gap 10, Blood Urea Nitrogen 28H, Creatinine 1.96H, Estimat Glomerular Filtration Rate 32, BUN/Creatinine Ratio 14 , Glucose Level 159H, Calcium Level 7.7L 12/29/17 11:25: Glucometer 198H 12/29/17 16:02: Glucometer 292H Microbiology 12/26/17 MRSA Screen - Final, Complete Assessment/Plan Assessment/Plan Assess & Plan/Chief Complaint A: s/p right hip prosthesis POD #2, displaced right femoral neck fracture P: Transfer care to Hospitalist service, [place] for discharge from ortho standpoint. f/u 3 weeks. DC deng on POD #10 and apply steri strips Clinical Quality Measures DVT/VTE Risk/Contraindication: Risk Factor Score Per Nursin RFS Level Per Nursing on Admit: 4+=Very High BECKY PATEL APRN Dec 29, 2017 7:28 pm
[2017-12-29] MEDS: meTOproloL SUCCINATE 50 MG (TOPROL XL) TAB PO SCH (20:07)
[2017-12-29] MEDS: KCL 20 MEQ TAB (K-DUR) PO SCH (20:07)
[2017-12-29 20:36] VITALS: BP 102/61
[2017-12-29] MEDS: oxyCODONE/APAP 5/325MG (PERCOCET 5) TABLET PO PRN (22:46)
[2017-12-30] VITALS (7 sets, daily range): BP systolic 111–134; BP diastolic 53–83
[2017-12-30 05:19] LABS: BASOPHILS % (AUTO) 0 % (0-10); EOSINOPHILS # (AUTO) 0.1 10^3/uL (0.0-0.3); EOSINOPHILS % (AUTO) 3 % (0-10); HEMATOCRIT 28 % (40-54); HEMOGLOBIN 10.1 G/DL (13.3-17.7); LYMPHOCYTES % (AUTO) 22 % (12-44); MEAN CORPUSCULAR HEMOGLOBIN 34 PG (25-34); MEAN CORPUSCULAR HGB CONC 36 G/DL (32-36); MEAN CORPUSCULAR VOLUME 96 FL (80-99); MEAN PLATELET VOLUME 10.2 FL (7.4-10.4); MONOCYTES # (AUTO) 0.7 X 10^3 (0.0-1.0); MONOCYTES % (AUTO) 15 % (0-12); NEUTROPHILS # (AUTO) 2.7 X 10^3 (1.8-7.8); NEUTROPHILS % (AUTO) 60 % (42-75); PLATELET COUNT 123 10^3/uL (130-400); RED BLOOD COUNT 2.97 10^6/uL (4.35-5.85); RED CELL DISTRIBUTION WIDTH 12.2 % (10.0-14.5); WHITE BLOOD COUNT 4.5 10^3/uL (4.3-11.0)
[2017-12-30 05:39] LABS: ALBUMIN 2.8 GM/DL (3.2-4.5); BILIRUBIN,TOTAL 1.2 MG/DL (0.1-1.0); CALCIUM 8.1 MG/DL (8.5-10.1); CREATININE SERUM 1.99 MG/DL (0.60-1.30); POTASSIUM 3.8 MMOL/L (3.6-5.0); TOTAL PROTEIN 5.8 GM/DL (6.4-8.2)
[2017-12-30] MEDS: PANTOPRAZOLE 40 MG (PROTONIX) TAB PO SCH (06:20)
[2017-12-30] MEDS: LEVOTHYROXINE 25 MCG (LEVOTHROID) TAB PO SCH (06:20)
[2017-12-30] MEDS: inSUlin ASPART (NovoLOG) 1 UNIT/0.01 ML (CHARGE PER UNIT) SC SCH ×2 (06:58→16:06)
[2017-12-30] MEDS: RT-ALBUTEROL SULF 2.5 MG/3 ML PRE-MIX VIAL INH SCH ×3 (08:13→19:58)
[2017-12-30] MEDS: DOCUSATE SODIUM 100 MG (COLACE) CAP PO SCH ×2 (08:45→20:41)
[2017-12-30] MEDS: amLODIPine 5 MG (NORVASC) TAB PO SCH (08:45)
[2017-12-30] MEDS: BUMETANIDE 1 MG (BUMEX) TAB PO SCH (08:45)
[2017-12-30] MEDS: POLYETHYLENE GLYCOL 17 GM (MIRALAX) PACK PO SCH ×2 (08:46→20:41)
--- NOTE | 2017-12-30 09:29 | Physical Therapy Daily Note ---
PT Daily Note-Current Subjective Pt sitting up in bed upon arrival. Pt agrees to PT despite pain/discomfort. Pain Numeric Pain Scale: 10-Worst Possible Pain Location: Right Location Body Site: Hip Pain Description: Ache, Throbbing Mental Status Patient Orientation: Person, Place, Situation Attachments: Oxygen Transfers Functional [place] Measure 0=Not Assessed/NA 4=Minimal Assistance 1=Total Assistance 5=Supervision or Setup 2=Maximal Assistance 6=Modified [place] 3=Moderate Assistance 7=Complete IndependenceIRFPAI Quality Coding Scale 6 Independent with activity with or without an assistive device 5 Patient requires set up or clean up by helper. Patient completes activity by themselves 4 Supervision or touching assist (CGA). [place] provide cues , steadying assist 3 The helper provides less than half the effort to complete the activity 2 The helper provides more than half the effort to complete the activity 1 Dependent. The helper does all the effort to complete an activity 7 Patient refused to complete or attempt activity 9 The patient did not perform the activity before the current illness or injury 88 Not attempted due to Medical conditions or safety concerns Weight Bearing Right Lower Extremity: Right Full Weight Bearing Left Lower Extremity: Left Full Weight Bearing Exercises Supine Ex: Ankle pumps, Hip abd/add Supine Reps: 15 Treatments MUSIC PROMOTER reviews hip precautions with pt as well as why wedge & SDCs are used. Pt completing Ex when breakfast arrives. Pt finishes Ex and eating breakfast with all needs met at end of tx. Assessment Current Status: Fair Progress Pt reports 10/10 pain but facial grimaces don't match pain reported. PT Short Term Goals Short Term Goals Time Frame: Jan 04, 2018 Transfers (B,C,W/C) (FIM): 4 Gait (FIM): 3 Distance (FIM): 3=150 ft Gait Level of Assist: 4 Gait Assistive Device: FWW Stairs (FIM): 2 # of Steps: 4 Stairs Level of Assist: 2 PT Plan Problem List Problem List: Activity Tolerance, Functional Strength, Safety, Balance, Gait, Transfer, Bed Mobility, ROM Treatment/Plan Treatment Plan: Continue Plan of Care Treatment Plan: Bed Mobility, Functional Activity Alix, Gait, Therapeutic Exercise, Transfers Treatment Duration: Jan 04, 2018 Frequency: 11 times per week Estimated Hrs Per Day: .5 hour per day Patient and/or Family Agrees t: Yes Safety Risks/Education Patient Education: Transfer Techniques, Reviewed Precautions, Correct Positioning, Safety Issues Teaching Recipient: Patient Teaching Methods: Discussion Response to Teaching: Verbalize Understanding, Reinforcement Needed Time/GCodes Time In: 855 Time Out: 910 Total Billed Treatment Time: 15 Total Billed Treatment 1, FA (15m) G Codes Necessary: LUCA Harley PTA Dec 30, 2017 09:29
[2017-12-30] MEDS: NS IV 1000 ML 1,000 ML IV SCH (11:26)
[2017-12-30] MEDS: morphine INJ 4 MG/ML 1 ML (VIAL/SYRINGE) IV PRN ×2 (12:10→19:56)
--- NOTE | 2017-12-30 12:29 | Progress Note-Hospitalist ---
Progress Note Progress Notes/Assess & Plan Date Seen 12/30/17 Time Seen by Provider: 12:20 Assessment & Plan The patient is an 87-year-old white male who had a surgical repair of a right hip fracture on December 27. The patient is an 87-year-old white male who had a operative repair of a right hip fracture on Wednesday 12/27. His states that he walked very slowly prior to that. He apparently was aided to sit at the bedside yesterday by physical therapy. This apparently was quite painful. His states he is not tolerating the pain very well. She broke her right hip about one year ago and states that she walks only with a rolling chair/ walker device. The mere mention of physical activity appeared to cause the patient to cry out. Physical exam: The patient did not speak to me but rather cried out on several occasions. Lungs were clear to auscultation. CV was rather poorly heard. Impression: Status post right hip fracture repair day number 3. 2.suggestion of dementia. Plan: horticultural services supervisor to explore our therapy options tomorrow. SHELBI RUSS MD Dec 30, 2017 12:29
--- NOTE | 2017-12-30 13:38 | Occ Therapy Progress Note ---
Therapy Progress Note Attempted OT treatment at 1305. Pt in bed with spouse present. Pt opens eyes, but is lethargic this afternoon. Pt says "no" to all questions and all attempts at therapeutic activities. Pt's meal tray is in front of him, but he declined to attempt eating. Attempted to have pt participate in grooming, but he refused. Pt declined all activity. Pt denied needs at this time. Spouse present in room after session. 1, visit THERESA TATUM OT Dec 30, 2017 13:38
--- NOTE | 2017-12-30 14:07 | Physical Therapy Progress Note ---
Therapy Progress Note Patient refused physical therapy this afternoon. He refused to ambulate, get in a chair, sit on the side of the bed, or perform bed exercises. Patient states he has 10/10 pain. The more therapy talks to him and tries to get him to participate, the more agitated he gets. MIRNA PEÑA PT Dec 30, 2017 14:07
[2017-12-30] MEDS ORDERED: HALOPERIDOL 5 MG/ML (HALDOL) AMP IV ONE ×2 (14:30)
[2017-12-30] MEDS: ENOXAPARIN 30 MG/0.3 ML (LOVENOX) SYR SC SCH (14:36)
[2017-12-30] MEDS: KCL 20 MEQ TAB (K-DUR) PO SCH (20:41)
[2017-12-30] MEDS: meTOproloL SUCCINATE 50 MG (TOPROL XL) TAB PO SCH (20:41)
[2017-12-31] MEDS: NS IV 1000 ML 1,000 ML IV SCH (00:54)
[2017-12-31 04:06] VITALS: BP 140/63
[2017-12-31] MEDS: morphine INJ 4 MG/ML 1 ML (VIAL/SYRINGE) IV PRN (04:27)
[2017-12-31] MEDS: LEVOTHYROXINE 25 MCG (LEVOTHROID) TAB PO SCH (06:18)
[2017-12-31] MEDS: PANTOPRAZOLE 40 MG (PROTONIX) TAB PO SCH (06:18)
[2017-12-31] MEDS: RT-ALBUTEROL SULF 2.5 MG/3 ML PRE-MIX VIAL INH SCH ×3 (07:09→19:08)
[2017-12-31 07:28] VITALS: BP 136/61
[2017-12-31] MEDS: amLODIPine 5 MG (NORVASC) TAB PO SCH (08:46)
[2017-12-31] MEDS: BUMETANIDE 1 MG (BUMEX) TAB PO SCH (08:46)
[2017-12-31] MEDS: inSUlin ASPART (NovoLOG) 1 UNIT/0.01 ML (CHARGE PER UNIT) SC SCH ×2 (08:47→18:54)
[2017-12-31] MEDS: ACETAMINOPHEN 325 MG TABLET PO PRN ×2 (08:47→15:10)
[2017-12-31] MEDS: DOCUSATE SODIUM 100 MG (COLACE) CAP PO SCH ×2 (08:49→20:54)
[2017-12-31] MEDS: POLYETHYLENE GLYCOL 17 GM (MIRALAX) PACK PO SCH ×2 (08:49→20:54)
--- NOTE | 2017-12-31 09:14 | Progress Note ---
Subjective Date Seen by Provider: Dec 31, 2017 Time Seen by Provider: 09:00 Subjective/Events-last exam PT CONFUSED - PT'S FAMILY NOT IN ROOM, STAFF REPORTS THAT THE PT HAD INCREASED CONFUSION SINCE HIS HIP SURGERY - DOES NOT APPEAR TO HAVE CONTROLLED PAIN Review of Systems General: Fatigue HEENT: No Head Aches Pulmonary: No Dyspnea, No Cough Cardiovascular: No: Chest Pain Gastrointestinal: No: Nausea, Vomiting Genitourinary: Incontinence Musculoskeletal: leg pain Neurological: Weakness, Confusion Objective Exam Last Set of Vital Signs Vital Signs Date Time Temp Pulse Resp B/P (MAP) Pulse Ox O2 Delivery O2 Flow Rate FiO2 12/31/17 07:28 97.5 69 18 136/61 (86) 97 Room Air 12/31/17 04:06 1.00 Capillary Refill : Less Than 3 Seconds I&O Intake and Output 12/31/17 00:00 Intake Total 1250 ml Output Total 2750 ml Balance -1500 ml Intake Oral 250 ml IV Total 1000 ml Output Urine Total 2750 ml # Bowel Movements 1 General: Alert, Oriented X3, Cooperative HEENT: Atraumatic, PERRLA Neck: Supple Lungs: Clear to Auscultation Heart: Regular Rate Abdomen: Normal Bowel Sounds, Soft, No Tenderness Skin: Other (ABRASION RIGHT POSTERIOR SHOULDER/SCAPULA) Psych/Mental Status: Mental Status NL, Other (TEARFUL) Results Lab Laboratory Tests 12/30/17 10:37: Glucometer 116H 12/30/17 16:01: Glucometer 172H 12/30/17 20:36: Glucometer 204H 12/31/17 05:26: Glucometer 212H Microbiology 12/26/17 MRSA Screen - Final, Complete Assessment/Plan Assessment/Plan Assess & Plan/Chief Complaint RIGHT INTERTROCHANTERIC HIP FRACTURE HYPERTENSION DIABETES MELLITUS HYPOTHYROID GERD RIGHT INTERTROCHANTERIC HIP FRACTURE - POST OP SURGICAL FIXATION HYPERTENSION - RESUMED HOME MEDICATIONS - MONITOR BLOOD PRESSURES. DIABETES MELLITUS - RESUMED INSULIN. HYPOTHYROID - RESUMED LEVOTHYROXINE. GERD - RESUMED PROTONIX. CONFUSION - DELIRIUM - SUPPORTIVE CARE - DISCUSSED WITH FAMILY - THEY WOULD LIKE LEIGH [place] Clinical Quality Measures Admission Status Admission Dx RIGHT INTERTROCHANTERIC HIP FRACTURE HYPERTENSION DIABETES MELLITUS HYPOTHYROID DVT/VTE Risk/Contraindication: Risk Factor Score Per Nursin RFS Level Per Nursing on Admit: 4+=Very High FRANCO DENIS MD Dec 31, 2017 09:14
--- NOTE | 2017-12-31 10:19 | Physical Therapy Daily Note ---
PT Daily Note-Current Subjective Patient is up in recliner and having difficulty eating breakfast. PT intervenes and assists patient. Pain Numeric Pain Scale: 10-Worst Possible Pain Location: Right Location Body Site: Hip Pain Description: Acute Mental Status Patient Orientation: Confused, Mumbles Attachments: Basilio Catheter, IV Transfers Functional [place] Measure 0=Not Assessed/NA 4=Minimal Assistance 1=Total Assistance 5=Supervision or Setup 2=Maximal Assistance 6=Modified [place] 3=Moderate Assistance 7=Complete IndependenceIRFPAI Quality Coding Scale 6 Independent with activity with or without an assistive device 5 Patient requires set up or clean up by helper. Patient completes activity by themselves 4 Supervision or touching assist (CGA). [place] provide cues , steadying assist 3 The helper provides less than half the effort to complete the activity 2 The helper provides more than half the effort to complete the activity 1 Dependent. The helper does all the effort to complete an activity 7 Patient refused to complete or attempt activity 9 The patient did not perform the activity before the current illness or injury 88 Not attempted due to Medical conditions or safety concerns Transfers (B, C, W/C) (FIM): 1 Scootin Sit to/from Stand: 1 Bed to/from Chair: 1 sit to stand dependent assist x 2 people with blocking bilateral knees to attain standing. Patient performed this task x 3 sets. Weight Bearing Right Lower Extremity: Right Full Weight Bearing Left Lower Extremity: Left Full Weight Bearing Exercises Seated Therapy Exercises: Ankle pumps, Long arc quads Seated Reps: 25 (AAROM) Assessment Patient is very slow with response verbally and physically and requires time to complete all functional tasks. PT consulted with physician on POC and both agree on LTCF. PT Short Term Goals Short Term Goals Time Frame: Jan 04, 2018 Transfers (B,C,W/C) (FIM): 4 Gait (FIM): 3 Distance (FIM): 3=150 ft Gait Level of Assist: 4 Gait Assistive Device: FWW Stairs (FIM): 2 # of Steps: 4 Stairs Level of Assist: 2 PT Plan Treatment/Plan Treatment Plan: Continue Plan of Care Treatment Plan: Bed Mobility, Functional Activity Alix, Gait, Therapeutic Exercise, Transfers Treatment Duration: Jan 04, 2018 Frequency: 11 times per week Estimated Hrs Per Day: .5 hour per day Patient and/or Family Agrees t: Yes Time/GCodes Time In: 845 Time Out: 910 Total Billed Treatment Time: 25 Total Billed Treatment 1 visit EX 9 min FA 16 min GUILLE TODD PT Dec 31, 2017 10:19
[2017-12-31 11:46] VITALS: BP 128/61
--- NOTE | 2017-12-31 13:02 | Occupational Ther Daily Note ---
OT Current Status-Daily Note Subjective Pt sitting in chair with spouse present. Pt does not give pain rating, but vocalizes pain during transfer. Mental Status/Objective Patient Orientation: Confused Functional [place] Measure 0=Not Assessed/NA 4=Minimal Assistance 1=Total Assistance 5=Supervision or Setup 2=Maximal Assistance 6=Modified [place] 3=Moderate Assistance 7=Complete [place] Attachments: Basilio Catheter, IV ADL-Treatment Pt sitting in chair, mumbles when asked questions. Would like to return to bed. Pt sit to stand dependent x2 with knees blocked. Pt does not follow cues to assist with transfer. Transfer to EOB with total assist. Dependent for sit to supine and to reposition in bed. Pt resting in bed with needs met and spouse present after session. Transfers (B, C, W/C) (FIM): 1 OT Short Term Goals Short Term Goals Time Frame: Jan 11, 2018 Eating(FIM): 4 Grooming(FIM): 4 Upper Body Dressing(FIM): 4 Lower Body Dressing(FIM): 3 Toileting(FIM): 4 Transfers (B,C,W/C) (FIM): 4 Toilet/Commode Transfer(FIM): 4 Additional Short Term Goals: 1-Demonstrate ADL Tasks, 2-Verbalize Understanding , 3-ImproveStrength/Alix 1=Demonstrate adherence to instructed precautions during ADL tasks. 2=Patient will verbalize/demonstrate understanding of assistive devices/ modifications for ADL. 3=Patient will improve strength/tolerance for activity to enable patient to perform ADL's. OT Fci Goals Car Examiner Goals Time Frame: Jan 25, 2018 Eating (FIM): 5 Grooming(FIM): 5 Bathing(FIM): 4 Upper Body Dressing(FIM): 5 Lower Body Dressing(FIM): 4 Toileting(FIM): 5 Transfers (B,C,W/C) (FIM): 5 Toilet/Commode Transfer(FIM): 5 Additional Goals: 1-Demonstrate ADL Tasks, 2-Verbalize Understanding, 3- ImproveStrength/Alix 1=Demonstrate adherence to instructed precautions during ADL tasks. 2=Patient will verbalize/demonstrate understanding of assistive devices/ modifications for ADL. 3=Patient will improve strength/tolerance for activity to enable patient to perform ADL's. OT Education/Plan Discharge Recommendations Plan/Recommendations: Continue POC Treatment Plan/Plan of Care Patient would benefit from OT for education, treatment and training to promote independence in ADL's, mobility, safety and/or upper extremity function for ADL' s. Plan of Care: ADL Retraining, Functional Mobility, UE Funct Exercise/Act Treatment Duration: Jan 25, 2018 Frequency: 5 times per week Estimated Hrs Per Day: .25 hour per day Agreement: Yes Rehab Potential: Guarded Time/GCodes Start Time: 11:10 Stop Time: 11:23 Total Time Billed (hr/min): 13 Billed Treatment Time 1 visit, FA(13minutes) THERESA TATUM OT Dec 31, 2017 13:02
[2017-12-31] MEDS: ENOXAPARIN 30 MG/0.3 ML (LOVENOX) SYR SC SCH (15:10)
[2017-12-31 15:25] VITALS: BP 126/73
--- NOTE | 2017-12-31 15:27 | Physical Therapy Daily Note ---
PT Daily Note-Current Subjective pt in bed pre tx, pt appears confused, complains of pain w/ any PROM Appearance Pt in bed post tx w/ nurses in the room, treatment discontinued after pt unable to swallow pain pills, pt very confused and unable to follow directions Mental Status Patient Orientation: Person, Confused Transfers Functional [place] Measure 0=Not Assessed/NA 4=Minimal Assistance 1=Total Assistance 5=Supervision or Setup 2=Maximal Assistance 6=Modified [place] 3=Moderate Assistance 7=Complete IndependenceIRFPAI Quality Coding Scale 6 Independent with activity with or without an assistive device 5 Patient requires set up or clean up by helper. Patient completes activity by themselves 4 Supervision or touching assist (CGA). [place] provide cues , steadying assist 3 The helper provides less than half the effort to complete the activity 2 The helper provides more than half the effort to complete the activity 1 Dependent. The helper does all the effort to complete an activity 7 Patient refused to complete or attempt activity 9 The patient did not perform the activity before the current illness or injury 88 Not attempted due to Medical conditions or safety concerns Weight Bearing Right Lower Extremity: Right Full Weight Bearing Left Lower Extremity: Left Full Weight Bearing Exercises Supine PROM Bilateral LE knee flexion/extension, ankle plantarflexion/ dorsiflexion x20, L ad/abduction x10 Treatments PROM of lower extremities Assessment Current Status: Poor Progress Pt complains of pain w/ any PROM, treatment discontinued after pt asked for pain pills, but was unable to swallow them when nurse brought them and unable to follow directions PT Short Term Goals Short Term Goals Time Frame: Jan 04, 2018 Transfers (B,C,W/C) (FIM): 4 Gait (FIM): 3 Distance (FIM): 3=150 ft Gait Level of Assist: 4 Gait Assistive Device: FWW Stairs (FIM): 2 # of Steps: 4 Stairs Level of Assist: 2 PT Plan Problem List Problem List: Activity Tolerance, Functional Strength, Safety, Balance, Gait, Transfer, Bed Mobility, ROM Treatment/Plan Treatment Plan: Continue Plan of Care Treatment Plan: Bed Mobility, Functional Activity Alix, Gait, Therapeutic Exercise, Transfers Treatment Duration: Jan 04, 2018 Frequency: 11 times per week Estimated Hrs Per Day: .5 hour per day Patient and/or Family Agrees t: Yes Safety Risks/Education Patient Education: Reviewed Precautions, Correct Positioning, Disease Process, Safety Issues Teaching Recipient: Patient Teaching Methods: Discussion Response to Teaching: Reinforcement Needed Time/GCodes Time In: 1505 Time Out: 1520 Total Billed Treatment Time: 15 Total Billed Treatment 1 visit EX 15' GUILLE TODD PT Dec 31, 2017 15:27
--- NOTE | 2017-12-31 16:25 | ST Dysphagia Evaluation ---
Speech Evaluation-General Medical Diagnosis (R) hip fx, (R) hip hemiarthroplasty Onset Date: Dec 26, 2017 Therapy Diagnosis Therapy Diagnosis: Dysphagia Precautions Precautions/Isolations: Standard Precautions Referral Referring Physician: Dr. Gilmore Reason for Referral: Evaluation/Treatment Medical History Pertinent Medical History: Arthritis, CABG, DM, GERD, HTN, Hypothroidism Reviewed History: Yes Social History Current Living Status: Significant Other Speech PLF/Current-Dysphagia Prior Level of Function Reported difficulty with pills. According to his it is inconsistent. Subjective Pt in bed sleeping. Easily to wake up. Cognitive Status Patient Orientation: Person Oral Motor Skills Denture Type: Full- Upper & Lower (loose fitting. Was not present for evaluation.) Current Food Consistancy: Regular, Thin Liquids Ability to Follow Directions: Fair Oral Expression Ability: Mild Impairment Voice Voice Phonatory-Based Quality: Weak Voice Loudness: Severely Soft/Quiet Dysphagia Evaluation Consistencies Presented: Thin Liquid, [place] Thick Liquid, Pureed Cues for labial seal around spoon. Aspiration for 2 out 3 trials of thin liquid from spoon with cough. Dietary Recommendations: Pureed Liquid Recommendations: [place] Consistancy Swallowing Precautions: Liquids from Spoon, No Straw, Sitting Upright 90 Degrees Dysphagia Evaluation Summary Pt dysphagic for thin liquids. Appeared to tolerate pureed texture with no s/s of aspiration. Barriers to Learning Weakness Speech Short Term Goals Short Term Goals Short Term Goals 1. Pt will tolerate current diet texture of pureed and nectar thick liquids with no s/s of aspiration. Time Frame-ST week Speech Longterm Goals Arch Support Maker Goals Pt will tolerate least restrictive diet with no s/s of aspiration. Time Frame: 2 wweks Speech-Plan Patient/Family Goals Patient/Family Goals: pt unable to state goals. Treatment Plan Speech Therapy Treatment Plan: Modify Plan, See Comments (Skilled ST indicated) Skilled ST indicated to address dysphagia for thin liquids. Frequency: 3 times per week Estimated Hrs Per Day: .25 hour per day Rehab Potential: Guarded Pt/Family Agrees to Plan: Yes Safety Risks/Education Teaching Recipient: Family Teaching Methods: Discussion Response to Teaching: Verbalize Understanding Time Speech Therapy Time In: 15:55 Speech Therapy Time Out: 16:20 Total Billed Time: 25 Billed Treatment Time 1ABA RANDY ST Dec 31, 2017 16:25
--- NOTE | 2017-12-31 16:57 | Diagnostic Imaging Report ---
PROCEDURE: US carotid duplex, bilateral. TECHNIQUE: Multiple real-time grayscale images were obtained over the carotid arteries in various projections, bilaterally. Additional duplex Doppler and color Doppler images were also obtained. INDICATION: Confusion. FINDINGS: Moderate calcified plaque in the proximal left ICA and carotid bulb is seen. There is some velocity elevation in the mid left ICA reaching 188 cm/s. Velocities on the right are unremarkable. The vertebral arteries were not visualized. IMPRESSION: Moderate left carotid plaque. Velocity measurements in the left mid ICA are consistent with 50 to 69% diameter stenosis. No other significant abnormality is seen. Parameters based on the consensus panel Chapman-Scale and Doppler ultrasound criteria published February 2003, Radiology, Volume 229. DOPPLER (peak systolic velocity M/S Right Left CCA 1.15 1.44 ICA Proximal 1.49 1.07 ICA Mid 1.22 1.88 ICA Distal .91 1.3 RATIO 1.3 1.3 ECA 1.34 1.3 VERT Dictated by: Dictated on workstation # [id number]
[2017-12-31 19:35] VITALS: BP 122/68
[2017-12-31] MEDS: KCL 20 MEQ TAB (K-DUR) PO SCH (20:54)
[2017-12-31] MEDS: meTOproloL SUCCINATE 50 MG (TOPROL XL) TAB PO SCH (20:54)
[2018-01-01 00:38] VITALS: BP 126/58
[2018-01-01] MEDS: NS IV 1000 ML 1,000 ML IV SCH ×2 (03:37→22:30)
[2018-01-01 04:01] VITALS: BP 131/65
[2018-01-01] MEDS: PANTOPRAZOLE 40 MG (PROTONIX) TAB PO SCH (06:05)
[2018-01-01] MEDS: LEVOTHYROXINE 25 MCG (LEVOTHROID) TAB PO SCH (06:05)
[2018-01-01] MEDS: RT-ALBUTEROL SULF 2.5 MG/3 ML PRE-MIX VIAL INH SCH ×2 (07:09→19:05)
--- NOTE | 2018-01-01 09:24 | Progress Note ---
Subjective Date Seen by Provider: Jan 01, 2018 Time Seen by Provider: 08:55 Subjective/Events-last exam PT TEARFUL, FAMILY AT BEDSIDE - REPORTS THAT CULLEN HAS BEEN PERSISTENTLY CONFUSED, HAS HAD A FEW PERIODS OF CLEARING OF HIS SENSORIUM. WHEN HE DOES TALK HE TELLS HIS FAMILY THAT THEY JUST NEED TO LET HIM GO. Review of Systems General: Fatigue, Malaise HEENT: No Head Aches, No Visual Changes Pulmonary: No Dyspnea, No Cough Cardiovascular: No: Chest Pain Gastrointestinal: No: Nausea, Vomiting, Diarrhea Genitourinary: Incontinence Neurological: Weakness, Confusion Objective Exam Last Set of Vital Signs Vital Signs Date Time Temp Pulse Resp B/P (MAP) Pulse Ox O2 Delivery O2 Flow Rate FiO2 01/01/18 07:09 97 Room Air 01/01/18 04:01 97.9 78 17 131/65 (87) 12/31/17 20:00 1.00 Capillary Refill : Less Than 3 Seconds I&O Intake and Output 01/01/18 00:00 Intake Total 1950 ml Output Total 1475 ml Balance 475 ml Intake Oral 350 ml IV Total 1600 ml Output Urine Total 1475 ml # Bowel Movements 3 General: Alert HEENT: Atraumatic, PERRLA Neck: Supple Lungs: Clear to Auscultation Heart: Regular Rate Abdomen: Normal Bowel Sounds, Soft, No Tenderness Skin: Other (ABRASION RIGHT POSTERIOR SHOULDER/SCAPULA) Psych/Mental Status: Other (CONFUSED AND TEARFUL) Results Lab Laboratory Tests 12/31/17 10:42: Glucometer 210H 12/31/17 15:24: Glucometer 78 12/31/17 20:28: Glucometer 183H 01/01/18 06:10: Glucometer 232H Microbiology 12/26/17 MRSA Screen - Final, Complete Assessment/Plan Assessment/Plan Assess & Plan/Chief Complaint RIGHT INTERTROCHANTERIC HIP FRACTURE HYPERTENSION DIABETES MELLITUS HYPOTHYROID GERD RIGHT INTERTROCHANTERIC HIP FRACTURE - POST OP SURGICAL FIXATION HYPERTENSION - RESUMED HOME MEDICATIONS - MONITOR BLOOD PRESSURES. DIABETES MELLITUS - RESUMED INSULIN. HYPOTHYROID - RESUMED LEVOTHYROXINE. GERD - RESUMED PROTONIX. CONFUSION - DELIRIUM - SUPPORTIVE CARE - DISCUSSED WITH FAMILY - THEY WOULD LIKE LEIGH [place] UNCONTROLLED PAIN - WITH DELIRIUM - MAY BE INCREASINGLY CONFUSED DUE TO THE PAIN - START FENTANYL PATCH TODAY AND USE VOLTAREN GEL AROUND EDGE OF DRESSING Clinical Quality Measures Admission Status Admission Dx RIGHT INTERTROCHANTERIC HIP FRACTURE HYPERTENSION DIABETES MELLITUS HYPOTHYROID DVT/VTE Risk/Contraindication: Risk Factor Score Per Nursin RFS Level Per Nursing on Admit: 4+=Very High FRANCO DENIS MD Jan 01, 2018 09:24
[2018-01-01] MEDS: POLYETHYLENE GLYCOL 17 GM (MIRALAX) PACK PO SCH ×2 (09:49→22:30)
[2018-01-01] MEDS: DOCUSATE SODIUM 100 MG (COLACE) CAP PO SCH ×2 (09:49→22:29)
[2018-01-01] MEDS: inSUlin ASPART (NovoLOG) 1 UNIT/0.01 ML (CHARGE PER UNIT) SC SCH ×4 (10:00→20:45)
[2018-01-01] MEDS: BUMETANIDE 1 MG (BUMEX) TAB PO SCH (10:00)
[2018-01-01] MEDS: amLODIPine 5 MG (NORVASC) TAB PO SCH (10:00)
--- NOTE | 2018-01-01 11:32 | Physical Therapy Progress Note ---
Therapy Progress Note Pt is very drowsy upon arrival. Per Nurse, maybe be better this afternoon. PT will try to coordinate with OT this afternoon due to pt's fatigue at this time. 1 visit, no tx rendered LUCA BRINK PTA Jan 01, 2018 11:32
[2018-01-01 12:00] VITALS: BP 113/70
[2018-01-01] MEDS ORDERED: fentaNYL PATCH 12 MCG (DURAGESIC) TD SCH (12:30)
[2018-01-01] MEDS: ACETAMINOPHEN 325 MG TABLET PO PRN (12:46)
--- NOTE | 2018-01-01 13:39 | Occupational Ther Daily Note ---
OT Current Status-Daily Note Subjective Pt sleeping in bed, woke easily to touch and name. Family present in room. Pt stated "There isn't enough time" when CUELLO told him it was time for therapy. CUELLO encouraged pt to participate and pt agreed. Mental Status/Objective Patient Orientation: Person Functional [place] Measure 0=Not Assessed/NA 4=Minimal Assistance 1=Total Assistance 5=Supervision or Setup 2=Maximal Assistance 6=Modified [place] 3=Moderate Assistance 7=Complete [place] Attachments: IV Other Treatment UE exercises against gravity completed in supine to increase strength and activity tolerance for daily functional tasks, 2 sets 5 reps. Pt initially began exercises with full shldr ROM then fatigued quickly, decreased to 90 degree shldr ROM and below. Decreased finger flexion, unable to make full fist. After therapy, pt lying in bed with eyes closed. Call light/phone in reach, family present in room. All needs met in room. OT Short Term Goals Short Term Goals Time Frame: Jan 11, 2018 Eating(FIM): 4 Grooming(FIM): 4 Upper Body Dressing(FIM): 4 Lower Body Dressing(FIM): 3 Toileting(FIM): 4 Transfers (B,C,W/C) (FIM): 4 Toilet/Commode Transfer(FIM): 4 Additional Short Term Goals: 1-Demonstrate ADL Tasks, 2-Verbalize Understanding , 3-ImproveStrength/Alix 1=Demonstrate adherence to instructed precautions during ADL tasks. 2=Patient will verbalize/demonstrate understanding of assistive devices/ modifications for ADL. 3=Patient will improve strength/tolerance for activity to enable patient to perform ADL's. OT Mcfp Goals Mcfp Goals Time Frame: Jan 25, 2018 Eating (FIM): 5 Grooming(FIM): 5 Bathing(FIM): 4 Upper Body Dressing(FIM): 5 Lower Body Dressing(FIM): 4 Toileting(FIM): 5 Transfers (B,C,W/C) (FIM): 5 Toilet/Commode Transfer(FIM): 5 Additional Goals: 1-Demonstrate ADL Tasks, 2-Verbalize Understanding, 3- ImproveStrength/Alix 1=Demonstrate adherence to instructed precautions during ADL tasks. 2=Patient will verbalize/demonstrate understanding of assistive devices/ modifications for ADL. 3=Patient will improve strength/tolerance for activity to enable patient to perform ADL's. OT Education/Plan Discharge Recommendations Plan/Recommendations: Continue POC Treatment Plan/Plan of Care Patient would benefit from OT for education, treatment and training to promote independence in ADL's, mobility, safety and/or upper extremity function for ADL' s. Plan of Care: ADL Retraining, Functional Mobility, UE Funct Exercise/Act Treatment Duration: Jan 25, 2018 Frequency: 5 times per week Estimated Hrs Per Day: .25 hour per day Agreement: Yes Rehab Potential: Guarded Time/GCodes Start Time: 13:20 Stop Time: 13:30 Total Time Billed (hr/min): 10 Billed Treatment Time 1 visit-EX 1 (10 min) RHONDA MESSINA Jan 01, 2018 13:39
[2018-01-01] MEDS: DICLOFENAC 1% GEL 100 GM (VOLTAREN) TUBE TOP SCH ×3 (13:46→22:29)
[2018-01-01] MEDS: ENOXAPARIN 30 MG/0.3 ML (LOVENOX) SYR SC SCH (15:22)
[2018-01-01 16:00] VITALS: BP 129/62
--- NOTE | 2018-01-01 16:09 | Physical Therapy Daily Note ---
PT Daily Note-Current Subjective Pt laying Supine in bed upon arrival. Pt agrees to PT. Pt is very drowsy and company in pt's room so very loud, making it difficult for pt to hear instructions given. Pain Numeric Pain Scale: 5-Moderate Pain Location: Right Location Body Site: Hip Pain Description: Ache Mental Status Patient Orientation: Person, Place Attachments: IV Transfers Functional [place] Measure 0=Not Assessed/NA 4=Minimal Assistance 1=Total Assistance 5=Supervision or Setup 2=Maximal Assistance 6=Modified [place] 3=Moderate Assistance 7=Complete IndependenceIRFPAI Quality Coding Scale 6 Independent with activity with or without an assistive device 5 Patient requires set up or clean up by helper. Patient completes activity by themselves 4 Supervision or touching assist (CGA). [place] provide cues , steadying assist 3 The helper provides less than half the effort to complete the activity 2 The helper provides more than half the effort to complete the activity 1 Dependent. The helper does all the effort to complete an activity 7 Patient refused to complete or attempt activity 9 The patient did not perform the activity before the current illness or injury 88 Not attempted due to Medical conditions or safety concerns Scootin Rollin Supine to/from Sit: 1 Sit to/from Stand: 1 Bed to/from Chair: 1 Weight Bearing Right Lower Extremity: Right Full Weight Bearing Left Lower Extremity: Left Full Weight Bearing Exercises Supine Ex: Ankle pumps, Quad Set, Hip abd/add Supine Reps: 15 Treatments Pt completes Supine Ex before needing to use BSC. Pt transfers at [facility] X2 SPT. Pt returns to Supine in bed at end of tx with all needs met. Assessment Current Status: Fair Progress Pt fatigues easily and reports pain during transfer & EX. PT Short Term Goals Short Term Goals Time Frame: Jan 04, 2018 Transfers (B,C,W/C) (FIM): 4 Gait (FIM): 3 Distance (FIM): 3=150 ft Gait Level of Assist: 4 Gait Assistive Device: FWW Stairs (FIM): 2 # of Steps: 4 Stairs Level of Assist: 2 PT Plan Problem List Problem List: Activity Tolerance, Functional Strength, Safety, Balance, Gait, Transfer, Bed Mobility Treatment/Plan Treatment Plan: Continue Plan of Care Treatment Plan: Bed Mobility, Functional Activity Alix, Gait, Therapeutic Exercise, Transfers Treatment Duration: Jan 04, 2018 Frequency: 11 times per week Estimated Hrs Per Day: .5 hour per day Patient and/or Family Agrees t: Yes Safety Risks/Education Patient Education: Transfer Techniques, Correct Positioning, Safety Issues Teaching Recipient: Patient Teaching Methods: Discussion Response to Teaching: Reinforcement Needed Time/GCodes Time In: 1520 Time Out: 1550 Total Billed Treatment Time: 30 Total Billed Treatment 1, GT (10m) & FA (20m) G Codes Necessary: LUCA Harley PTA Jan 01, 2018 16:08
[2018-01-01 19:28] VITALS: BP 130/59
[2018-01-01] MEDS: meTOproloL SUCCINATE 50 MG (TOPROL XL) TAB PO SCH (22:28)
[2018-01-01] MEDS: KCL 20 MEQ TAB (K-DUR) PO SCH (22:28)
[2018-01-02 00:27] VITALS: BP 140/63
[2018-01-02] MEDS: ACETAMINOPHEN 325 MG TABLET PO PRN (02:28)
[2018-01-02 04:24] VITALS: BP 128/61
[2018-01-02] MEDS: PANTOPRAZOLE 40 MG (PROTONIX) TAB PO SCH (05:55)
[2018-01-02] MEDS: LEVOTHYROXINE 25 MCG (LEVOTHROID) TAB PO SCH (05:55)
[2018-01-02] MEDS: inSUlin ASPART (NovoLOG) 1 UNIT/0.01 ML (CHARGE PER UNIT) SC SCH ×2 (05:55→11:34)
[2018-01-02] MEDS: RT-ALBUTEROL SULF 2.5 MG/3 ML PRE-MIX VIAL INH SCH (07:34)
[2018-01-02 08:23] VITALS: BP 158/67
--- NOTE | 2018-01-02 08:35 | Speech Therapy Daily Note ---
Speech Daily Progress Note Subjective Date Seen by Provider: Jan 02, 2018 Time Seen by Provider: 08:00 Pt up in chair. Alert and cooperative. Pain Numeric Pain Scale: 0-No Pain Objective Clinical observation of pt eating pureed diet with nectar thick liquids. Did not observe any s/s of aspiration. Provided pt with thin water and coffee. Pt did not exhibit any s/s of aspiration. Plan is to upgrade pt to dysphagia 2 diet with thin liquids with speech to follow to determine safety of new diet. Informed nursing of the upgrade. Assessment Assessment Current Status: Good Progress Treatment Plan Continue Plan of Care Speech Short Term Goals Short Term Goals Short Term Goals 1. Pt will tolerate current diet texture of pureed and nectar thick liquids with no s/s of aspiration. Time Frame-ST week Speech Usp Goals Production Planner Scheduler Goals Pt will tolerate least restrictive diet with no s/s of aspiration. Time Frame: 2 wweks Speech-Plan Patient/Family Goals Patient/Family Goals: to go home Treatment Plan Speech Therapy Treatment Plan: Continue Plan of Care Pt is doing much better than initial visit by Speech. Frequency: 3 times per week Estimated Hrs Per Day: .25 hour per day Rehab Potential: Good Pt/Family Agrees to Plan: Yes Safety Risks/Education Teaching Recipient: Patient, Family Teaching Methods: Discussion Response to Teaching: Verbalize Understanding Time Speech Therapy Time In: 08:00 Speech Therapy Time Out: 08:20 Total Billed Time: 20 Billed Treatment Time 1, DYST VINCE Winters Jan 02, 2018 08:35
[2018-01-02] MEDS: BUMETANIDE 1 MG (BUMEX) TAB PO SCH (08:50)
[2018-01-02] MEDS: amLODIPine 5 MG (NORVASC) TAB PO SCH (08:50)
[2018-01-02] MEDS: DICLOFENAC 1% GEL 100 GM (VOLTAREN) TUBE TOP SCH ×2 (08:50→12:58)
[2018-01-02] MEDS: POLYETHYLENE GLYCOL 17 GM (MIRALAX) PACK PO SCH (08:50)
[2018-01-02] MEDS: DOCUSATE SODIUM 100 MG (COLACE) CAP PO SCH (08:51)
--- NOTE | 2018-01-02 09:18 | Discharge Summary ---
Diagnosis/Chief Complaint Date of Admission Dec 26, 2017 at 11:10 Date of Discharge Discharge Date: Jan 22, 2018 Discharge Time: 09:30 Admission Diagnosis Admission Diagnosis RIGHT INTERTROCHANTERIC HIP FRACTURE HYPERTENSION DIABETES MELLITUS HYPOTHYROID GERD Discharge Diagnosis RIGHT INTERTROCHANTERIC HIP FRACTURE HYPERTENSION DIABETES MELLITUS HYPOTHYROID GERD Reason Hospital Visit PT IS AN 87 Y/O MALE WHO IS KNOWN TO ME FROM CLINIC AND PREVIOUS HOSPITALIZATIONS. THE PATIENT REPORTS THAT HE WOKE UP THIS MORNING AROUND 7, GOT UP TO GO TO THE RESTROOM AND FELT UNSTEADY - HE GRABBED FOR THE VANITY, BUT WENT DOWN TO THE GROUND HITTING HIS RIGHT SHOULDER ON THE TOILET AND HIS RIGHT HIP ON THE FLOOR. HE WAS ABLE TO ROUSE HIS FROM BED AND HE WAS TAKEN TO [facility] WHERE HE WAS FOUND TO HAVE A RIGHT HIP FRACTURE. THEY DID NOT HAVE ORTHOPEDIC COVERAGE AVAILABLE TODAY. HE REPORTS THAT HIS SHOULDER DOES NOT HURT, BUT HIS RIGHT HIP CONTINUES TO BE UNCOMFORTABLE. Discharge Summary Consultations ORTHOPEDIC SURGERY Discharge Physical Examination Allergies: Coded Allergies: fenofibrate (Verified Allergy, Unknown, 10/18/17) metoclopramide (Verified Allergy, Unknown, 10/18/17) rosiglitazone (Verified Allergy, Unknown, 10/18/17) Vitals & I&Os General Appearance: Alert, Oriented X3 (INTERMITTENTLY) HEENT: Atraumatic, PERRLA Respiratory: Clear to Auscultation Cardiovascular: Regular Rate Abdominal: Normal Bowel Sounds, Soft, No Tenderness Skin: Other (ABRASION RIGHT POSTERIOR SHOULDER/SCAPULA) Psych/Mental Status: Mental Status NL, Mood NL, Other Hospital Course RIGHT INTERTROCHANTERIC HIP FRACTURE HYPERTENSION DIABETES MELLITUS HYPOTHYROID GERD RIGHT INTERTROCHANTERIC HIP FRACTURE - POST OP SURGICAL FIXATION HYPERTENSION - RESUMED HOME MEDICATIONS - MONITOR BLOOD PRESSURES. DIABETES MELLITUS - RESUMED INSULIN. HYPOTHYROID - RESUMED LEVOTHYROXINE. GERD - RESUMED PROTONIX. CONFUSION - DELIRIUM - SUPPORTIVE CARE - DISCUSSED WITH FAMILY - THEY WOULD LIKE LEIGH STEWART - CONFUSION IMPROVED AFTER CHANGE OF MEDICATION YESTERDAY UNCONTROLLED PAIN - WITH DELIRIUM - MAY BE INCREASINGLY CONFUSED DUE TO THE PAIN - START FENTANYL PATCH TODAY AND USE VOLTAREN GEL AROUND EDGE OF DRESSING Pending Labs Discharge Condition at discharge IMPROVED MENTATION Instructions to patient/family Please see electronic discharge instructions given to patient. Discharge Medications Reviewed and agree with Discharge Medication list on patient's Discharge Instruction sheet Clinical Quality Measures DVT/VTE Risk/Contraindication: Risk Factor Score Per Nursin RFS Level Per Nursing on Admit: 4+=Very High FRANCO DENIS MD Jan 02, 2018 09:18
[2018-01-02] MEDS ORDERED: DICL100G18 TOP (09:23)
[2018-01-02] MEDS ORDERED: ACET325T49 PO (09:23)
[2018-01-02] MEDS ORDERED: DOCU100C37 PO (09:23)
[2018-01-02] MEDS ORDERED: ALPR0.5T7 PO (09:23)
[2018-01-02] MEDS ORDERED: FEN12TD TD (09:23)
--- NOTE | 2018-01-02 09:26 | Discharge Inst-Skilled Nursing ---
Discharge Inst-Skilled NF Patient Instructions Patient Problems: RIGHT INTERTROCHANTERIC HIP FRACTURE HYPERTENSION DIABETES MELLITUS HYPOTHYROID GERD Goal: HOME WITH HOME HEALTH WHEN PHYSICALLY ABLE Consult/Follow Up/Orders Skilled NF Admit to: [facility] Certification (SNF) I certify that SNF services are required to be given on an inpatient basis because of the above named patient's need for custodial care on a continuing basis for the conditions(s) for which he/she was receiving inpatient hospital services prior to his/her transfer to the SNF. [facility]pc Facility Order: Nursing Services, Chemist-Evaluate & Treat, Physical Therapy-Evaluate & Treat, Speech Language-Evaluate & Treat Discharge Diet: Other Diet (ADVANCE DIET TOLERATED CURRENTLY ON THICKENED LIQUIDS - SHOULD IMPROVE ENOUGH TO BE ABLE TO TAKE REGULAR DIET SOON) New & Resume Previous Orders Franco Gilmore Jan 02, 2018 09:24 Medication List: Active Scripts Active Voltaren (Diclofenac Sodium) 100 Gm Gel..gram. 4 Gm TOP QID APPLY TO AREA AROUND INCISION SITE ON RIGHT HIP - DO NOT APPLY ON TOP OF INCISION SITE Alprazolam 0.5 Mg Tablet 0.5 Mg PO BID PRN Duragesic Patch 12MCG (Fentanyl) 12 Mcg Patch 12 Mcg TD Q72H Reported Humalog Kwikpen (Insulin Lispro) 100 Unit/1 Ml Insuln.pen 30 Unit SQ BID Potassium Chloride 20 Meq Tab.er.prt 20 Meq PO HS Amlodipine Besylate 5 Mg Tablet 5 Mg PO DAILY Nitroglycerin 0.4 Mg Tab.subl 0.4 Mg SL UD PRN Toprol Xl (Metoprolol Succinate) 50 Mg Tab.er.24h 50 Mg PO HS Meclizine HCl 25 Mg Tab.chew 25 Mg PO TID PRN Clopidogrel (Clopidogrel Bisulfate) 75 Mg Tablet 75 Mg PO DAILY Bumetanide 1 Mg Tablet 1 Mg PO DAILY Pantoprazole Sodium 40 Mg Tablet.dr 40 Mg PO DAILY Levothyroxine Sodium 25 Mcg Tablet 25 Mcg PO DAILY Lab results: Laboratory Tests Test 01/01/18 10:56 01/01/18 16:13 01/01/18 20:24 01/02/18 05:11 Range/Units Glucometer 242 H 257 H 177 H 249 H 70-110 MG/DL My orders: Orders - FRANCO GILMORE MD Insulin Aspart (Novolog) (Novolog (Charg (01/01/18 11:45) Dys1 Pureed (01/01/18 Dinner) Patient Visit (01/01/18 ) Fentanyl Patch (Duragesic Patch) (01/01/18 12:30) Diclofenac 1% Gel (Voltaren 1% Gel) (01/01/18 13:00) Patient Visit (01/01/18 ) Gait Training, Ea 15 Min (01/01/18 ) Functional Activities, Ea 15 (01/01/18 ) Attending Discharge Inpt/Inobs (01/02/18 09:18) FRANCO GILMORE MD Jan 02, 2018 09:25
--- NOTE | 2018-01-02 11:48 | Physical Therapy Daily Note ---
PT Daily Note-Current Subjective Patient sitting in hip chair and family present. All agree to participate with PT. Pain Numeric Pain Scale: 10-Worst Possible Pain Location: Right Location Body Site: Hip Pain Description: Acute Mental Status Patient Orientation: Confused Transfers Functional [place] Measure 0=Not Assessed/NA 4=Minimal Assistance 1=Total Assistance 5=Supervision or Setup 2=Maximal Assistance 6=Modified [place] 3=Moderate Assistance 7=Complete IndependenceIRFPAI Quality Coding Scale 6 Independent with activity with or without an assistive device 5 Patient requires set up or clean up by helper. Patient completes activity by themselves 4 Supervision or touching assist (CGA). [place] provide cues , steadying assist 3 The helper provides less than half the effort to complete the activity 2 The helper provides more than half the effort to complete the activity 1 Dependent. The helper does all the effort to complete an activity 7 Patient refused to complete or attempt activity 9 The patient did not perform the activity before the current illness or injury 88 Not attempted due to Medical conditions or safety concerns Transfers (B, C, W/C) (FIM): 3 Sit to/from Stand: 3 Weight Bearing Right Lower Extremity: Right Full Weight Bearing Left Lower Extremity: Left Full Weight Bearing Gait Training Gait (FIM): 1 Distance (FIM): 1=up to 49 ft Distance: 30' Gait Level of Assist: 3 Gait Persons Needed: 1 Gait Assistive Device: FWW slow, flexed knee posture with shuffle gait sequence Exercises Seated Therapy Exercises: Long arc quads Seated Reps: 10 (AAROM) Assessment During gait training, patient became too fatigued and required assistance to attain sit in hip chair. Patient tolerates minimal activity. Plan dismissal to [place] on this date. PT Short Term Goals Short Term Goals Time Frame: Jan 04, 2018 Transfers (B,C,W/C) (FIM): 4 Gait (FIM): 3 Distance (FIM): 3=150 ft Gait Level of Assist: 4 Gait Assistive Device: FWW Stairs (FIM): 2 # of Steps: 4 Stairs Level of Assist: 2 PT Plan Treatment/Plan Treatment Plan: Discontinue PT Treatment Plan: Bed Mobility, Functional Activity Alix, Gait, Therapeutic Exercise, Transfers Treatment Duration: Jan 04, 2018 Frequency: 11 times per week Estimated Hrs Per Day: .5 hour per day Patient and/or Family Agrees t: Yes Discharge Recommendations Therapy D/C Recommendations: Jail Placement, Senior Living (TCU/NH) Time/GCodes Time In: 1110 Time Out: 1125 Total Billed Treatment Time: 15 Total Billed Treatment 1 visit GT 15 min GUILLE TODD PT Jan 02, 2018 11:48
[2018-01-02 12:00] VITALS: BP 126/72
[2018-01-02 13:36] VITALS: BP 126/72
--- NOTE | 2018-01-10 21:23 | OPERATIVE REPORT ---
DATE OF SERVICE: 12/27/2017 ADDENDUM: The only addendum that needs to be added to this OP report is the date of service and that is 12/27/2017. Job ID: [id number] DocumentID: [id number] Dictated Date: 01/10/2018 14:37:51 Strawberry Grower Date: 01/10/2018 21:22:39 Dictated By: BJ ZHANG DO
== END 2018-01-02 13:10 | DRG 470 ==
LOC: 4TH 11:10 → EDPENDDISTM 01-22 09:30 → EDPENDDISDT 01-22 09:30
PROVIDERS: ADMIT Family Medicine; ATTEND Family Medicine
PROC: 0SRR01A Replacement of Right Hip Joint, Femoral Surface with Metal Synthetic Substitute, Uncemented, Open Approach (ICD-10-PCS; principal; 2017-12-27 10:08)
DX: S72.141A Displaced intertrochanteric fracture of right femur, initial encounter for closed fracture (principal); J98.11 Atelectasis; F05 Delirium due to known physiological condition; G89.18 Other acute postprocedural pain; I12.9 Hypertensive chronic kidney disease with stage 1 through stage 4 chronic kidney disease, or unspecified chronic kidney disease; N18.3 Chronic kidney disease, stage 3 (moderate); K21.9 Gastro-esophageal reflux disease without esophagitis; E11.9 Type 2 diabetes mellitus without complications; Z66 Do not resuscitate; R50.9 Fever, unspecified; D69.6 Thrombocytopenia, unspecified; E03.9 Hypothyroidism, unspecified; M19.91 Primary osteoarthritis, unspecified site; F32.9 Major depressive disorder, single episode, unspecified; Z95.5 Presence of coronary angioplasty implant and graft; Z95.1 Presence of aortocoronary bypass graft; Z95.2 Presence of prosthetic heart valve; Z86.73 Personal history of transient ischemic attack (TIA), and cerebral infarction without residual deficits; Z79.4 Long term (current) use of insulin; W18.39XA Other fall on same level, initial encounter; Y92.002 Bathroom of unspecified non-institutional (private) residence as the place of occurrence of the external cause
CPT/HCPCS: 36415; 70450; 71045; 72170; 80048; 80053; 81000; 82962; 85025; 85027; 86850; 86900; 86901; 87081; 93880; 94640; 94664; 94760

== ENCOUNTER → 2018-02-07 | Outpatient (CLI) | payer MEDICARE ==
[~2018-02-07] MED LIST changes: +ACET325T49 PO; +DICL100G18 TOP; +DOCU100C37 PO; +FEN12TD TD; +INSU100I23 SQ; +METO-370 PO
== END ==
LOC: WOUNDCARE 08:00
PROVIDERS: ATTEND Surgery
DX: E11.621 Type 2 diabetes mellitus with foot ulcer (principal); I70.234 Atherosclerosis of native arteries of right leg with ulceration of heel and midfoot; L89.610 Pressure ulcer of right heel, unstageable; I50.9 Heart failure, unspecified
CPT/HCPCS: 99214

== ENCOUNTER → 2018-02-26 | Outpatient (CLI) | payer MEDICARE | LOC: WOUNDCARE 13:47 | PROVIDERS: ATTEND Surgery | DX: E11.621 Type 2 diabetes mellitus with foot ulcer (principal); I70.234 Atherosclerosis of native arteries of right leg with ulceration of heel and midfoot; L89.610 Pressure ulcer of right heel, unstageable; I50.9 Heart failure, unspecified | CPT/HCPCS: 99212 ==

== ENCOUNTER → 2018-03-26 | Outpatient (CLI) | payer MEDICARE | LOC: WOUNDCARE 14:45 | PROVIDERS: ATTEND Orthopaedic Surgery Hand Surgery | DX: E11.621 Type 2 diabetes mellitus with foot ulcer (principal); I70.234 Atherosclerosis of native arteries of right leg with ulceration of heel and midfoot; L89.610 Pressure ulcer of right heel, unstageable; I50.9 Heart failure, unspecified | CPT/HCPCS: 97597 ==

== ENCOUNTER → 2018-04-02 | Outpatient (CLI) | payer MEDICARE | LOC: WOUNDCARE 14:45 | PROVIDERS: ATTEND Orthopaedic Surgery Hand Surgery | DX: E11.621 Type 2 diabetes mellitus with foot ulcer (principal); L89.610 Pressure ulcer of right heel, unstageable; I50.9 Heart failure, unspecified; I70.234 Atherosclerosis of native arteries of right leg with ulceration of heel and midfoot | CPT/HCPCS: 97597 ==

== ENCOUNTER → 2018-04-09 | Outpatient (CLI) | payer MEDICARE ==
--- NOTE | 2018-04-09 17:38 | Diagnostic Imaging Report ---
EXAMINATION: Right foot, 3 views. INDICATION: Nonhealing heel pressure ulcer. Concern for osteomyelitis. COMPARISON: None. FINDINGS: There is generalized osteopenia of the visualized bones, which limits detailed evaluation. No fracture or acute osseous abnormality. No evidence of osseous erosion. Bony alignment is maintained. There is mild degenerative change of the midfoot. There is diffuse soft tissue swelling of the foot, most prominent along the dorsum of the foot. No soft tissue gas is seen. Vascular calcifications are noted. IMPRESSION: No acute fracture or dislocation. There is no evidence of osseous erosion to suggest acute osteomyelitis. There is soft tissue swelling of the foot, but no evidence of soft tissue gas. Dictated by: Dictated on workstation # [id number]
== END ==
LOC: RAD 15:37
PROVIDERS: ATTEND Orthopaedic Surgery Hand Surgery
DX: E11.621 Type 2 diabetes mellitus with foot ulcer (principal); L89.614 Pressure ulcer of right heel, stage 4; I20.9 Angina pectoris, unspecified; I70.234 Atherosclerosis of native arteries of right leg with ulceration of heel and midfoot
CPT/HCPCS: 73630

== ENCOUNTER → 2018-04-09 | Outpatient (CLI) | payer MEDICARE | LOC: WOUNDCARE 14:35 | PROVIDERS: ATTEND Orthopaedic Surgery Hand Surgery | DX: E11.621 Type 2 diabetes mellitus with foot ulcer (principal); I70.234 Atherosclerosis of native arteries of right leg with ulceration of heel and midfoot; L89.614 Pressure ulcer of right heel, stage 4; I50.9 Heart failure, unspecified | CPT/HCPCS: 11042; 97597 ==

== ENCOUNTER → 2018-04-16 | Outpatient (CLI) | payer MEDICARE | LOC: WOUNDCARE 14:50 | PROVIDERS: ATTEND Orthopaedic Surgery Hand Surgery | DX: L89.614 Pressure ulcer of right heel, stage 4 (principal); E11.621 Type 2 diabetes mellitus with foot ulcer; I70.234 Atherosclerosis of native arteries of right leg with ulceration of heel and midfoot; I50.9 Heart failure, unspecified | CPT/HCPCS: 97597 ==